=== PATIENT | male | born 1980 | race Caucasian/White ===

== ENCOUNTER 2022-05-28 08:26 | Outpatient (REF) | payer OTHER, SELFPAY ==
[2022-05-28 11:37] LABS: Appearance Urine Clear; Color Urine Yellow; Glucose Urine UA Negative (Negative); Leukocyte Esterase Urine Negative (Negative); Nitrite Urine Negative (Negative); PH 7.5 (5.0-9.0); Urine Blood Negative (Negative); Urine Ketones Negative (Negative); Urine Protein Negative (Neg-Trace)
[2022-05-28 11:38] LABS: MANUAL DIFF FLAG NO
[2022-05-28 11:52] LABS: Basophils Percent Auto 0.4 % (0-2); Eosinophils Absolute Auto 0.1 X10*3/uL (0.0-0.4); Eosinophils Percent Auto 1.5 % (0-4); Hematocrit 48.2 % (42.0-52.0); Imm Gran Abs Auto 0.04 X10*3/uL (0.00-0.03); Imm Gran Pct Auto 0.6 % (0.0-0.4); Lymphocytes Absolute Auto 1.7 X10*3/uL (1.2-4.9); Lymphocytes Percent Auto 24.7 % (20-40); Mean Corpuscular HGB Conc 33.2 g/dl (31.0-36.0); Mean Corpuscular Hemoglobin 29.6 pg (27.0-33.0); Mean Corpuscular Volume 89.3 fL (80.0-98.0); Mean Platelet Volume 10.5 fL (9.4-12.4); Monocytes Absolute Auto 0.3 X10*3/uL (0.1-1.2); Monocytes Percent Auto 5.1 % (2-11); Neutrophils Absolute Auto 4.5 x10*3/uL (2.0-8.3); Neutrophils Percent Auto 67.7 % (45-73); Platelet Count 196 X10*3/uL (160-400); Red Cell Distribution Width 13.8 % (11.0-16.0); White Blood Count 6.7 X10*3/uL (4.8-10.8)
[2022-05-28 12:22] LABS: Alanine Aminotransferase 43 U/L (0-40); Albumin Level 4.6 g/dL (3.5-5.0); Alkaline Phosphatase 93 U/L (39-117); Anion Gap 14 (12-20); Aspartate Amino Transferase 24 U/L (5-37); Bilirubin Total 0.6 mg/dL (0.0-1.0); Blood Urea Nitrogen 10 mg/dL (9-16); Calcium 8.7 mg/dL (8.4-10.2); Carbon Dioxide 27 mmol/L (22-29); Chloride 105 mmol/L (96-108); Cholesterol 165 mg/dL; Estimated Glomerular Filt Rate > 60; Glucose Fasting 92 mg/dL (60-99); HDL Cholesterol 33 mg/dL; LDL Cholesterol Calculated 111 mg/dl; Potassium 4.8 mmol/L (3.3-5.1); Sodium 141 mmol/L (135-145); Triglycerides 109 mg/dL
[2022-05-28 12:24] LABS: TSH reflex Free T4 1.71 uIU/mL (0.32-4.0)
== END 2022-05-28 08:27 | disposition home or self-care (01) ==
LOC: HO.HMGCLDS 08:26
PROVIDERS: PCP Nurse Practitioner Family; Visit Provider Nurse Practitioner Family
DX: Z00.00 Encounter for general adult medical examination without abnormal findings (principal)
CPT/HCPCS: 36415; 80053; 80061; 81003; 84443; 85025

== ENCOUNTER → 2022-06-04 13:32 | Outpatient (REF) | payer OTHER, SELFPAY ==
--- NOTE | 2022-06-04 13:35 | CA_ITS ---
Transthoracic Echocardiogram Patient (Last, First, Middle): Douglas Koroma B Gender: Male Date of : 1980 Age: 41 Procedure Date: 06/04/2022 Procedure Type: Transthoracic Echocardiogram Location: OP Height: 180.34 cm Weight: 107.05 kg BSA: 2.26 m2 Heart Rate: 82 bpm BP: 178 / 82 mmHg Workers Compensation Analyst: SRINIVASA Referring MD: Jim Allen [facility] Symptoms: R01.1 - Cardiac murmur, unspecified Study Quality: Adequate ECG Rhythm: Sinus Conclusions: - The left ventricular systolic function is normal. The visually estimated ejection fraction is between 55-60%. - Mild Concentric left ventricular hypertrophy; moderate at the septum. - Suspect bicuspid aortic valve with mild stenosis. - There is mild dilatation of the ascending aorta measuring 4.10 cm. Findings Left Ventricle Normal left ventricular cavity size. There is mildly increased left ventricular wall thickness. The left ventricular systolic function is normal. The visually estimated ejection fraction is between 55-60%. Diastolic function is normal for age. There is moderate septal asymmetric hypertrophy. Right Ventricle Normal right ventricular cavity size and systolic function. Atria Both atria are normal in size. Aortic Valve There is mild calcification of the aortic valve. There is mild aortic valve stenosis. The mean gradient is 20 mmHg. The aortic valve area is 1.57 cm2. There is no aortic valve regurgitation. Possibly bicuspid with fusion of left and right cusps. Mitral Valve The mitral valve appears normal. There is no mitral valve regurgitation. There is no mitral valve stenosis. Pulmonic Valve The pulmonic valve is likely normal. Tricuspid Valve Normal tricuspid valve structure. There is no tricuspid valve regurgitation. Tricuspid regurgitation envelope is inadequate for calculation of right ventricular systolic pressure. Great Vessels There is mild dilatation of the ascending aorta measuring 4.10 cm. Venous The inferior vena cava is normal in size and collapses greater than 50% with inspiration. Pericardium/Pleural There is no evidence of pericardial effusion. Prior Study Comparison No prior study available for comparison. Measurements 2D Linear Measurements IVSd: 1.43 0.6-0.9/0.6-1.0 cm LVIDd: 5.22 3.9-5.3/4.2-5.9 cm LVIDd Index: 2.31 2.4-3.2/2.2-3.1 cm/m2 LVIDs: 3.35 2.0-3.6 cm LVPWd: 1.23 0.7-1.1 cm LA Diam: 4.10 2.7-3.8/3.0-4.0 cm LAIDs Index: 1.81 1.5-2.3 cm/m2 LV Mass: 360.95 67-162/88-224 g LV Mass Index: 159.71 43-95/49-115 g/m2 LVOT Diam: 2.50 3.0+(-)1.3 cm 2D Systolic Function EF 4C: 53.50 >55% EF 2C: 37.20 >55% Mitral Valve MV Pk E: 1.03 MV PK A: 1.22 MV Decel Time: 169.00 E/A: 0.80 E'Lateral: 8.49 E'Medial: 7.62 E/E' Med: 13.50 E/E' Lat: 12.10 PHT: 50.00 MVA PHT: 4.40 Decel Barnes: 6.08 Aortic Valve AoV Pk Dk: 3.16 AoV Mn Dk: 2.01 AoV VTI: 0.61 AoV Pk Grad: 40.00 Aov Mn Grad: 20.00 ALISTAIR Cont.VTI: 1.57 LVOT LVOT Pk Dk: 0.99 LVOT Mn Dk: 0.75 LVOT VTI: 0.20 LVOT Pk Grad: 4.00 LVOT Mn Grad: 2.00 LVOT Diam: 2.50 LVOT Area: 4.91 Diastolic Function MV Pk E: 1.03 MV Pk A: 1.22 E/A: 0.80 E'Medial: 7.62 E/E' Med: 13.50 E' Laterial: 8.49 E/E' Lat: 12.10 Right Ventricle TAPSE (mm): 25.30 TVS' Dk: 16.50 Tricuspid Valve RA Press: 3.00 Great Vessels Aorta Sinus of Valsalva: 3.60 2.0-3.5 cm Ao Asc: 4.10 2.1-3.4 cm Pulmonary Valve PV Pk Dk: 1.16 Peak PV Grad: 5.00 Updated in Other Vendor System with Status of Final Miguel Bill MD electronically signed on 06/04/2022 4:49:07 PM with status of Final
== END ==
LOC: HO.CARD 13:32
PROVIDERS: Visit Provider Nurse Practitioner Family
DX: R01.1 Cardiac murmur, unspecified (principal)
CPT/HCPCS: 93306

== ENCOUNTER 2023-08-09 08:49 | Outpatient (REF) | payer OTHER, SELFPAY ==
[2023-08-09 11:52] LABS: Appearance Urine Clear; Color Urine Yellow; Glucose Urine UA Negative (Negative); Leukocyte Esterase Urine Negative (Negative); Nitrite Urine Negative (Negative); PH 6.5 (5.0-9.0); Specific Gravity - Urine 1.015 (1.005-1.025); Urine Blood Negative (Negative); Urine Ketones Negative (Negative); Urine Protein Negative (Neg-Trace)
[2023-08-09 11:52] LABS: MANUAL DIFF FLAG NO
[2023-08-09 11:54] LABS: Basophils Percent Auto 0.5 % (0-2); Eosinophils Absolute Auto 0.1 X10*3/uL (0.0-0.4); Eosinophils Percent Auto 1.6 % (0-4); Hematocrit 45.6 % (42.0-52.0); Hemoglobin 15.7 g/dl (14.0-18.0); Imm Gran Abs Auto 0.03 X10*3/uL (0.00-0.03); Imm Gran Pct Auto 0.5 % (0.0-0.4); Lymphocytes Absolute Auto 1.8 X10*3/uL (1.2-4.9); Lymphocytes Percent Auto 28.1 % (20-40); Mean Corpuscular HGB Conc 34.4 g/dl (31.0-36.0); Mean Corpuscular Hemoglobin 29.7 pg (27.0-33.0); Mean Corpuscular Volume 86.2 fL (80.0-98.0); Mean Platelet Volume 10.4 fL (9.4-12.4); Monocytes Absolute Auto 0.4 X10*3/uL (0.1-1.2); Monocytes Percent Auto 6.3 % (2-11); Platelet Count 184 X10*3/uL (160-400); Red Blood Count 5.29 X10*6/uL (4.60-5.80); Red Cell Distribution Width 13.6 % (11.0-16.0); White Blood Count 6.4 X10*3/uL (4.8-10.8)
[2023-08-09 12:16] LABS: Alanine Aminotransferase 47 U/L (0-40); Albumin Level 4.2 g/dL (3.5-5.0); Alkaline Phosphatase 85 U/L (39-117); Anion Gap 10 (12-20); Aspartate Amino Transferase 26 U/L (5-37); Bilirubin Total 0.8 mg/dL (0.0-1.0); Blood Urea Nitrogen 11 mg/dL (9-16); Calcium 8.8 mg/dL (8.4-10.2); Carbon Dioxide 28 mmol/L (22-29); Chloride 104 mmol/L (96-108); Cholesterol 154 mg/dL (<200); Estimated Glomerular Filt Rate > 60; Glucose Fasting 97 mg/dL (60-99); HDL Cholesterol 31 mg/dL (>40); LDL Cholesterol Calculated 96 mg/dL (<100); Potassium 4.3 mmol/L (3.3-5.1); Sodium 138 mmol/L (135-145); Total Protein 6.9 g/dL (6.5-8.0); Triglycerides 136 mg/dL (<150)
[2023-08-09 12:35] LABS: TSH reflex Free T4 1.55 uIU/mL (0.32-4.0)
== END 2023-08-09 08:50 | disposition home or self-care (01) ==
LOC: HO.HMGCLDS 08:49
PROVIDERS: PCP Nurse Practitioner Family; Visit Provider Nurse Practitioner Family
DX: I10 Essential (primary) hypertension (principal)
CPT/HCPCS: 36415; 80053; 80061; 81003; 84443; 85025

== ENCOUNTER 2023-10-02 15:23 | Outpatient (AMB) | payer OTHER, SELFPAY ==
[2023-10-02 15:26] VITALS: BP 140/86; PULSE 76; O2SAT 97; BMI 34.2
--- NOTE | 2023-10-02 15:26 | MHC.PC.OV ---
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 Accompanied by: Self / Same As Patient Allergies No Known Allergies Allergy (Verified 10/02/23 15:26) Medication List - Last Reconciled 10/02/23 by NICOLAS Clayton amlodipine 5 mg PO DAILY cetirizine (Zyrtec) 10 mg PO DAILY PRN hydrochlorothiazide 12.5 mg PO DAILY 90 days irbesartan 150 mg PO DAILY Tobacco use date assessed: 10/02/23 Dental Screening Dental Screen Date: 10/02/23 Did you have a dental visit in the last 12 months?: Yes Did you have a dental problem in the last 6 months where you did not have access to dental care?: No Was dental information given to patient?: Patient has dentist HPI annual exam/BP HPI Details Pt is here for a PE. Will order labs. Pt had a previous echo in May of 2022 which showed: The left ventricular systolic function is normal. The visually estimated ejection fraction is between 55-60%. Mild Concentric left ventricular hypertrophy; moderate at the septum. Suspect bicuspid aortic valve with mild stenosis. There is mild dilatation of the ascending aorta measuring 4.10 cm. I wanted to repeat an echo but pt refused due to cost. Pt's murmur is not changing in intensity. HTN: Blood pressure is managed with amlodipine 2.5mg, hydrochlorothiazide 12.5mg, and irbesartan 75mg. Will increase amlodipine to 5mg and irbesartan to 150mg after one week. Pt will monitor his blood pressure at home. Denies chest pain, shortness of breath, headache, dizziness, and blurred vision. [facility] Medical History Ascending aorta dilatation Surgical History No pertinent past surgical history Social History Housing: Apartment Patient Tobacco Use Status: Never used Tobacco e-Cigarette/Vaping Use: Never Used Second Hand Smoke Exposure: No service: No Current occupational status: employed Current occupation: [employer] Current occupational exposures/hazards: No Cognitive needs: No Hearing needs: No Vision needs: No Questionnaire PHQ-9 Over the last 2 weeks, how often have you been bothered by any of the following problems? 1. Little interest or pleasure in doing things: not at all 2. Feeling down, depressed, or hopeless: several days 3. Trouble falling or staying asleep, or sleeping too much: several days 4. Feeling tired or having little energy: not at all 5. Poor appetite or overeating: not at all 6. Feeling bad about yourself - or that you are a failure or have let yourself or your family down: not at all 7. Trouble concentrating on things, such as reading the newspaper or watching television: not at all 8. Moving or speaking so slowly that other people could have noticed. Or the opposite - being so fidgety or restless that you have been moving around a lot more than usual: not at all 9. Thoughts that you would be better off or of hurting yourself in some way: not at all Total score: 2 Depression Screening Interpretation: Negative Depression Screening Done: Yes 70152 - PHQ-9 Billing: Yes Source: Developed by Drs. Ez Gutierrez, Cheryl العراقي, Jak Allen and colleagues, with an educational marcela from [employer]. Thrive Questionnaire Date Thrive assessed: 10/02/23 AUDIT C Alcohol Use Questionnaire (AUDIT-C) 1. How often do you have a drink containing alcohol?: 4 or more times a week 2. How many drinks containing alcohol do you have on a typical day when you are drinking?: 1 or 2 3. How often do you have six or more drinks on one occasion?: Never Total Score: 4 Score Reviewed/Action Taken: Yes JUSTYN-7 AMB Questionnaire JUSTYN-7 Date JUSTYN - 7 assessed: 10/02/23 Feeling nervous, anxious, or on edge: 1 = Several days Not being able to stop or control worryin = Not at all Worrying too much about different things: 1 = Several days Trouble relaxin = Not at all Being so restless that it is hard to sit still: 1 = Several days Becoming easily annoyed or irritable: 0 = Not at all Feeling afraid as if something awful might happen: 0 = Not at all Total JUSTYN-7 score (0-4 normal; 5-9 mild; 10-14 moderate; 15-21 severe): 3 Source: Developed by Drs. Ez Gutierrez, Cheryl العراقي, Jak Allen and colleagues, with an educational marcela from [employer]. JUSTYN-7 Assessment Billing JUSTYN-7 Assessment Tool: JUSTYN-7 Assessment 83980 Review of Systems Const Denies chills and Denies fever(s) Eyes Denies blurry vision ENT Denies vertigo, Denies dizziness and Denies sore throat Card Denies chest pain at rest, Denies chest pain with activity, Denies diaphoresis, Denies dyspnea and Denies dyspnea on exertion Resp Denies cough, Denies dyspnea, Denies dyspnea on exertion and Denies wheezing GI Denies abdominal pain, Denies melena, Denies hematochezia, Denies constipation, Denies diarrhea and Denies loose stools Denies hematuria Musc Denies numbness and Denies tingling Skin/Breast Denies lesions Neuro Denies vertigo, Denies dizziness, Denies numbness and Denies tingling Psych Denies anxiety, Denies depression, Denies homicidal ideation, Denies suicidal ideation and Denies other (substance abuse) Aller/Immun Denies wheezing Physical exam (Primary Care) Vital Signs: Last Vital Signs Pulse 76 10/02/23 15:26 BP 140/86 H 10/02/23 15:26 Pulse Ox 97 10/02/23 15:26 Oxygen Delivery Method Room Air 10/02/23 15:26 BMI result Body Mass Index 34.2 Tobacco/Smoking Status: Tobacco use Status Tobacco use date assessed 10/02/23 10/02/23 15:27 Patient Tobacco Use Status Never used Tobacco 10/02/23 15:27 e-Cigarette/Vaping Use Never Used 10/02/23 15:27 PHQ-9: PHQ-9 Score PHQ-9: Total score 2 10/02/23 15:46 Depression Screening Interpretation: Negative Thrive Assessment: Date of Thrive Assessment Date Thrive assessed 10/02/23 10/02/23 15:27 Const General: cooperative Nutritional Appearance: obese Orientation/consciousness: patient oriented x3 HENMT Head: Yes normal to inspection, Yes normocephalic and Yes atraumatic Ears: TM's normal bilaterally Eyes General: appearance normal, both eyes and all related structures Alignment and Position: alignment normal and position normal Neck Neck: Yes normal visual inspection and Yes no lymphadenopathy Thyroid: Thyroid normal Resp Effort & Inspection: normal respiratory effort Auscultation: clear to auscultation bilaterally Cardio Rate: regular rate Rhythm: regular rhythm Heart sounds: S1 normal heart sound present, S2 normal heart sound present and Murmur heart sound present systolic GI Palpation (GI): Soft to palpation and nontender Auscultation: normal bowel sounds Skin Rashes: no rashes Neuro General: patient oriented x3, moves all extremities, no focal motor deficits and deep tendon reflexes 2+ bilaterally Romberg Test: Negative Extrem Right lower extremity: no edema Left lower extremity: no edema Psych Appearance: grossly normal Mental Status: mental status grossly normal Speech and movement: Normal speech and movement present Affect: normal affect Attitude: cooperative Thought process: Normal thought process present Thought content: Normal thought content present Insight: Good insight present (Psych) Judgement: Good judgement present (Psych) Assessment and Plan Assessment & Plan (1) Aortic stenosis: Code(s): I35.0 - Nonrheumatic aortic (valve) stenosis (2) Ascending aorta dilatation: Code(s): I77.810 - Thoracic aortic ectasia (3) Bicuspid aortic valve: Code(s): Q23.1 - Congenital insufficiency of aortic valve (4) HTN (hypertension): Code(s): I10 - Essential (primary) hypertension Plan: monitoring, irbesartan increased, amlodipine increased, pt will drop off BP values in the near future (5) Physical exam: Code(s): Z00.00 - Encounter for general adult medical examination without abnormal findings (6) Systolic murmur: Code(s): R01.1 - Cardiac murmur, unspecified Plan: will cont to monitor Plan The patient agreed to the use of a medical interpreter for this encounter. Scribed for NICOLAS Dumont by Mattie Hunt medical interpreter, on 10/02/2023 at 15:45 EST. Medications: Changed From amlodipine 2.5 mg PO DAILY 90 tabs 1RF To amlodipine 5 mg PO DAILY 90 tabs 1RF From irbesartan 75 mg PO DAILY 90 tabs 1RF To irbesartan 150 mg PO DAILY 90 tabs 1RF Coding Level of Care Code Est Pt Prev Care 40-64y(29788) Diagnoses Aortic stenosis I35.0 Ascending aorta dilatation I77.810 Bicuspid aortic valve Q23.1 HTN (hypertension) I10 Physical exam Z00.00 Systolic murmur R01.1 Additional Codes JUSTYN-7 Assessment Billing - JUSTYN-7 Assessment Tool: JUSTYN-7 Assessment 71040 ([id number])
== END 2023-10-02 16:14 | disposition home or self-care (01) ==
PROVIDERS: PCP Nurse Practitioner Family; Visit Provider Nurse Practitioner Family
DX: Z00.00 Encounter for general adult medical examination without abnormal findings (principal); I77.810 Thoracic aortic ectasia; I35.0 Nonrheumatic aortic (valve) stenosis; I10 Essential (primary) hypertension; R01.1 Cardiac murmur, unspecified
CPT/HCPCS: 99396

== ENCOUNTER 2023-11-07 10:34 | Outpatient (REF) | payer OTHER, SELFPAY ==
[2023-11-07 13:05] LABS: MANUAL DIFF FLAG NO
[2023-11-07 13:13] LABS: Appearance Urine Clear; Color Urine Yellow; Glucose Urine UA Negative (Negative); Leukocyte Esterase Urine Negative (Negative); Nitrite Urine Negative (Negative); PH 6.5 (5.0-9.0); Specific Gravity - Urine 1.015 (1.005-1.025); Urine Blood Negative (Negative); Urine Ketones Negative (Negative); Urine Protein Negative (Neg-Trace)
[2023-11-07 13:19] LABS: Basophils Percent Auto 0.6 % (0-2); Eosinophils Absolute Auto 0.2 X10*3/uL (0.0-0.4); Eosinophils Percent Auto 2.3 % (0-4); Hematocrit 43.5 % (42.0-52.0); Hemoglobin 14.8 g/dl (14.0-18.0); Imm Gran Abs Auto 0.03 X10*3/uL (0.00-0.03); Imm Gran Pct Auto 0.5 % (0.0-0.4); Lymphocytes Absolute Auto 1.8 X10*3/uL (1.2-4.9); Mean Corpuscular Hemoglobin 29.6 pg (27.0-33.0); Mean Platelet Volume 10.1 fL (9.4-12.4); Monocytes Absolute Auto 0.4 X10*3/uL (0.1-1.2); Monocytes Percent Auto 5.9 % (2-11); Neutrophils Absolute Auto 4.1 x10*3/uL (2.0-8.3); Neutrophils Percent Auto 63.7 % (45-73); Platelet Count 191 X10*3/uL (160-400); Red Cell Distribution Width 13.9 % (11.0-16.0); White Blood Count 6.5 X10*3/uL (4.8-10.8)
[2023-11-07 14:04] LABS: Alanine Aminotransferase 62 U/L (0-40); Albumin Level 4.6 g/dL (3.5-5.0); Alkaline Phosphatase 79 U/L (39-117); Anion Gap 16 (12-20); Aspartate Amino Transferase 31 U/L (5-37); Bilirubin Total 0.9 mg/dL (0.0-1.0); Blood Urea Nitrogen 14 mg/dL (9-16); Calcium 9.5 mg/dL (8.4-10.2); Carbon Dioxide 26 mmol/L (22-29); Chloride 102 mmol/L (96-108); Cholesterol 152 mg/dL (<200); Estimated Glomerular Filt Rate > 60; Glucose Fasting 99 mg/dL (60-99); HDL Cholesterol 32 mg/dL (>40); LDL Cholesterol Calculated 85 mg/dL (<100); Potassium 3.7 mmol/L (3.3-5.1); Sodium 140 mmol/L (135-145); Total Protein 7.2 g/dL (6.5-8.0); Triglycerides 178 mg/dL (<150)
[2023-11-07 14:09] LABS: TSH reflex Free T4 1.41 uIU/mL (0.32-4.0)
== END 2023-11-07 10:35 | disposition home or self-care (01) ==
LOC: HO.HMGCLDS 10:34
PROVIDERS: PCP Nurse Practitioner Family; Visit Provider Nurse Practitioner Family
DX: Z13.89 Encounter for screening for other disorder (principal)
CPT/HCPCS: 36415; 80053; 80061; 81003; 84443; 85025

== ENCOUNTER 2024-04-08 14:48 | Outpatient (AMB) | payer OTHER, SELFPAY ==
[2024-04-08 14:51] VITALS: BP 140/84; PULSE 87; O2SAT 97; BMI 35.0
--- NOTE | 2024-04-08 14:51 | A.OFFPC_ITS ---
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 Pt reports that his blood pressure has been averaging around 138/high 80s. Will add metoprolol 12.5mg. Pt has a hx of aortic stenosis, bicuspid aortic valve, and ascending aorta dilatation. Pt has refused repeat echo in the past due to cost. Informed pt of the importance and relevance of a repeat echo, will order. Denies chest pain, shortness of breath, headache, dizziness,increased fatigue, and blurred vision. Encouraged pt to have labs drawn. [facility] Medical History Ascending aorta dilatation Surgical History No pertinent past surgical history Social History Housing: Apartment Patient Tobacco Use Status: Never used Tobacco e-Cigarette/Vaping Use: Never Used Second Hand Smoke Exposure: No service: No Current occupational status: employed Current occupation: [employer] Current occupational exposures/hazards: No Cognitive needs: No Hearing needs: No Vision needs: No Questionnaire Thrive Questionnaire Date Thrive assessed: 04/08/24 I am a: Patient What is your living situation today?: I choose not to answer this question Within the past 12 months, did the food you bought not last and you didn't have the money to get more?: I choose not to answer this question Within the past 12 months, did you worry whether your food would run out before you got money to buy more?: I choose not to answer this question Do you have trouble paying for medicines?: I choose not to answer this question Do you have trouble getting transportation to medical appointments?: I choose not to answer this question Do you have trouble paying your heating and electricity bill?: I choose not to answer this question Do you have trouble taking care of your child, family member or friend?: I choose not to answer this question Do you have trouble with day-to-day activities such as bathing, preparing meals, shopping, managing finances, etc.?: I choose not to answer this question Are you interested in more education?: I choose not to answer this question Please select the resources that you would like help with: None Currently or been in a relationship where the following occur: I choose not to answer THRIVE Score: 0 AUDIT C Alcohol Use Questionnaire (AUDIT-C) 1. How often do you have a drink containing alcohol?: 2-4 times a month 2. How many drinks containing alcohol do you have on a typical day when you are drinking?: 1 or 2 3. How often do you have six or more drinks on one occasion?: Never Total Score: 2 Score Reviewed/Action Taken: Yes JUSTYN-7 AMB Questionnaire JUSTYN-7 Date JUSTYN - 7 assessed: 04/08/24 Feeling nervous, anxious, or on edge: 0 = Not at all Not being able to stop or control worryin = Not at all Worrying too much about different things: 0 = Not at all Trouble relaxin = Not at all Being so restless that it is hard to sit still: 0 = Not at all Becoming easily annoyed or irritable: 0 = Not at all Feeling afraid as if something awful might happen: 0 = Not at all Total JUSTYN-7 score (0-4 normal; 5-9 mild; 10-14 moderate; 15-21 severe): 0 Source: Developed by Drs. Ez Gutierrez, Cheryl العراقي, Jak Allen and colleagues, with an educational marcela from [employer]. JUSTYN-7 Assessment Billing JUSTYN-7 Assessment Tool: JUSTYN-7 Assessment 76528 Review of Systems Const Reports as per HPI Physical exam (Primary Care) Vital Signs: Last Vital Signs Pulse 87 04/08/24 14:51 BP 138/84 04/08/24 15:01 Pulse Ox 97 04/08/24 14:51 Oxygen Delivery Method Room Air 04/08/24 14:51 BMI result Body Mass Index 35.0 Tobacco/Smoking Status: Tobacco use Status Tobacco use date assessed 10/02/23 04/08/24 14:52 Patient Tobacco Use Status Never used Tobacco 04/08/24 14:52 e-Cigarette/Vaping Use Never Used 04/08/24 14:52 Thrive Assessment: Date of Thrive Assessment Date Thrive assessed 04/08/24 04/08/24 14:52 Currently or been in a relationship where the following occur: I choose not to answer Const General: cooperative Nutritional Appearance: obese Orientation/consciousness: patient oriented x3 Resp Effort & Inspection: normal respiratory effort Auscultation: clear to auscultation bilaterally Cardio Rate: regular rate Rhythm: regular rhythm Heart sounds: S1 normal heart sound present, S2 normal heart sound present and Murmur heart sound present systolic Neuro General: patient oriented x3 Extrem Right lower extremity: no edema Left lower extremity: no edema Psych Appearance: grossly normal Mental Status: mental status grossly normal Speech and movement: Normal speech and movement present Affect: normal affect Attitude: cooperative Thought process: Normal thought process present Thought content: Normal thought content present Insight: Good insight present (Psych) Judgement: Good judgement present (Psych) Coding Level of Care Code Est Pt Level 3 (13686) Diagnoses Bicuspid aortic valve Q23.1 Aortic stenosis I35.0 Ascending aorta dilatation I77.810 HTN (hypertension) I10 Additional Codes JUSTYN-7 Assessment Billing - JUSTYN-7 Assessment Tool: JUSTYN-7 Assessment 16556 ([id number]) Assessment & Plan Assessment & Plan (1) Bicuspid aortic valve: Code(s): Q23.1 - Congenital insufficiency of aortic valve Category: Medical Plan: Informed pt of the importance and relevance of repeat echo, will order (2) Aortic stenosis: Code(s): I35.0 - Nonrheumatic aortic (valve) stenosis Category: Medical Plan: Informed pt of the importance and relevance of repeat echo, will order (3) Ascending aorta dilatation: Code(s): I77.810 - Thoracic aortic ectasia Category: Medical Plan: Informed pt of the importance and relevance of repeat echo, will order (4) HTN (hypertension): Code(s): I10 - Essential (primary) hypertension Category: Medical Plan: Starting metoprolol 12.5mg, encouraged pt to have labs drawn Plan The patient agreed to the use of a medical or surgical instrument maker for this encounter. Scribed for NICOLAS Dumont by bharat Bass scribe, on 04/08/2024 at 15:05 EST. Orders: Orders CA echo transthoracic complete Today I10 - Essential (primary) hypertension, I35.0 - Nonrheumatic aortic (valve) stenosis, I77.810 - Thoracic aortic ectasia, Q23.1 - Congenital insufficiency of aortic valve, R01.1 - Cardiac murmur, unspecified Medications: New metoprolol succinate ER 12.5 mg (1/2 x 25 mg) PO DAILY 30 days 15 tabs 1RF
[2024-04-08 15:01] VITALS: BP 138/84
== END 2024-04-08 16:40 | disposition home or self-care (01) ==
PROVIDERS: PCP Nurse Practitioner Family; Visit Provider Nurse Practitioner Family
DX: Q23.1 Congenital insufficiency of aortic valve (principal); I35.0 Nonrheumatic aortic (valve) stenosis; I77.810 Thoracic aortic ectasia; I10 Essential (primary) hypertension

== ENCOUNTER → 2024-04-08 14:48 | Outpatient (BNVA) | payer OTHER, SELFPAY | PROVIDERS: PCP Nurse Practitioner Family; Visit Provider Nurse Practitioner Family | DX: I10 Essential (primary) hypertension (principal); I35.0 Nonrheumatic aortic (valve) stenosis; I77.810 Thoracic aortic ectasia; Q23.1 Congenital insufficiency of aortic valve | CPT/HCPCS: 96127 ==

== ENCOUNTER → 2024-05-04 14:42 | Outpatient (REF) | payer OTHER, SELFPAY ==
--- NOTE | 2024-05-04 14:46 | CA_ITS ---
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 The calculated ejection fraction is 57% by biplane method. - There is a bicuspid aortic valve. There is mild aortic valve stenosis. - There is moderate dilatation of the ascending aorta measuring 4.40 cm. Findings Procedure Information Contrast agent, definity, is being given per protocol without apparent complications. Left Ventricle Normal left ventricular cavity size. There is mildly increased left ventricular wall thickness. The left ventricular systolic function is normal. The calculated ejection fraction is 57% by biplane method. There is no evidence of regional wall motion abnormalities. Diastolic function is normal for age. Right Ventricle Normal right ventricular cavity size and systolic function. Atria Both atria are normal in size. Aortic Valve There is a bicuspid aortic valve. There is mild calcification of the aortic valve. There is mild aortic valve stenosis. The peak aortic velocity is 2.63 m/s with a calculated peak gradient of 28 mmHg. The mean gradient is 17 mmHg. The aortic valve area is 1.37 cm2. There is no aortic valve regurgitation. (fusion of left and right cusps). Mitral Valve The mitral valve appears normal. There is no mitral valve regurgitation. There is no mitral valve stenosis. Pulmonic Valve The pulmonic valve is likely normal. There is trace pulmonic valve regurgitation. Tricuspid Valve There is trace tricuspid valve regurgitation. Tricuspid regurgitation envelope is inadequate for calculation of right ventricular systolic pressure. Great Vessels There is moderate dilatation of the ascending aorta measuring 4.40 cm. Venous The inferior vena cava is normal in size and collapses greater than 50% with inspiration. Pericardium/Pleural There is no evidence of pericardial effusion. Prior Study Comparison Changes noted compared to prior study dated: 06/04/2022. Increase in ascending aortic size. Measurements 2D Linear Measurements IVSd: 1.15 0.6-0.9/0.6-1.0 cm LVIDd: 4.95 3.9-5.3/4.2-5.9 cm LVIDd Index: 2.13 2.4-3.2/2.2-3.1 cm/m2 LVIDs: 3.54 2.0-3.6 cm LVPWd: 1.03 0.7-1.1 cm LA Diam: 3.90 2.7-3.8/3.0-4.0 cm LAIDs Index: 1.68 1.5-2.3 cm/m2 LV Mass: 250.83 67-162/88-224 g LV Mass Index: 108.12 43-95/49-115 g/m2 LVOT Diam: 2.40 3.0+(-)1.3 cm 2D Systolic Function EF 4C: 54.30 >55% EF 2C: 59.80 >55% EF BiP: 57.10 >55% Mitral Valve MV Pk E: 0.74 MV PK A: 0.66 MV Decel Time: 160.00 E/A: 1.10 E'Lateral: 5.77 E'Medial: 4.90 E/E' Med: 15.00 E/E' Lat: 12.80 PHT: 47.00 MVA PHT: 4.68 Decel Duchesne: 4.60 Aortic Valve AoV Pk Dk: 2.63 AoV Mn Dk: 1.94 AoV VTI: 0.50 AoV Pk Grad: 28.00 Aov Mn Grad: 17.00 ALISTAIR Cont.VTI: 1.37 LVOT LVOT Pk Dk: 0.83 LVOT Mn Dk: 0.64 LVOT VTI: 0.15 LVOT Pk Grad: 3.00 LVOT Mn Grad: 2.00 LVOT Diam: 2.40 LVOT Area: 4.52 Diastolic Function MV Pk E: 0.74 MV Pk A: 0.66 E/A: 1.10 E'Medial: 4.90 E/E' Med: 15.00 E' Laterial: 5.77 E/E' Lat: 12.80 Right Ventricle TAPSE (mm): 23.90 TVS' Dk: 17.20 Tricuspid Valve RA Press: 3.00 Great Vessels Aorta Sinus of Valsalva: 3.76 2.0-3.[address] [place]: 3.15 1.7-3.4 cm Ao Asc: 4.40 2.1-3.4 cm Ao Arch: 3.40 Updated in Other Vendor System with Status of Final Miguel Bill MD electronically signed on 05/05/2024 11:01:51 AM with status of Final
== END ==
LOC: HO.CARD 14:42
PROVIDERS: PCP Nurse Practitioner Family; Visit Provider Nurse Practitioner Family
DX: Q23.1 Congenital insufficiency of aortic valve (principal); I35.0 Nonrheumatic aortic (valve) stenosis; I77.810 Thoracic aortic ectasia
CPT/HCPCS: 93306; Q9957

== ENCOUNTER → 2024-05-04 14:46 | Outpatient (BNV) | payer OTHER, SELFPAY | PROVIDERS: PCP Nurse Practitioner Family; Visit Provider Internal Medicine | DX: Q23.81 Bicuspid aortic valve (principal); Q23.0 Congenital stenosis of aortic valve; I77.810 Thoracic aortic ectasia | CPT/HCPCS: 93303; 93320; 93325 ==

== ENCOUNTER 2024-06-22 09:53 | Outpatient (REF) | payer OTHER, SELFPAY ==
[2024-06-22 13:22] LABS: Appearance Urine Clear; Color Urine Yellow; Glucose Urine UA Negative (Negative); Leukocyte Esterase Urine Negative (Negative); Nitrite Urine Negative (Negative); Urine Blood Negative (Negative); Urine Ketones Negative (Negative); Urine Protein Negative (Neg-Trace)
[2024-06-22 13:28] LABS: Bacteria Urine None Seen (None Seen); Hyaline Casts Urine 0-2 /LPF (0-2); RBC Urine 0-2 /HPF (0-2); Squamous Epithelial Cell Urine 0-2 /HPF (0-2); WBC Urine 0-5 /HPF (0-5)
[2024-06-22 13:34] LABS: MANUAL DIFF FLAG NO
[2024-06-22 13:47] LABS: Basophils Percent Auto 0.6 % (0-2); Eosinophils Absolute Auto 0.2 X10*3/uL (0.0-0.4); Eosinophils Percent Auto 2.2 % (0-4); Hematocrit 46.1 % (42.0-52.0); Hemoglobin 15.6 g/dl (14.0-18.0); Imm Gran Abs Auto 0.04 X10*3/uL (0.00-0.03); Imm Gran Pct Auto 0.6 % (0.0-0.4); Lymphocytes Absolute Auto 1.6 X10*3/uL (1.2-4.9); Lymphocytes Percent Auto 24.4 % (20-40); Mean Corpuscular HGB Conc 33.8 g/dl (31.0-36.0); Mean Corpuscular Hemoglobin 29.3 pg (27.0-33.0); Mean Corpuscular Volume 86.7 fL (80.0-98.0); Mean Platelet Volume 10.3 fL (9.4-12.4); Monocytes Absolute Auto 0.3 X10*3/uL (0.1-1.2); Monocytes Percent Auto 4.8 % (2-11); Neutrophils Absolute Auto 4.5 x10*3/uL (2.0-8.3); Neutrophils Percent Auto 67.4 % (45-73); Platelet Count 199 X10*3/uL (160-400); Red Blood Count 5.32 X10*6/uL (4.60-5.80); Red Cell Distribution Width 13.5 % (11.0-16.0); White Blood Count 6.7 X10*3/uL (4.8-10.8)
[2024-06-22 14:18] LABS: Alanine Aminotransferase 68 U/L (0-40); Albumin Level 4.4 g/dL (3.5-5.0); Alkaline Phosphatase 76 U/L (39-117); Anion Gap 10 (12-20); Aspartate Amino Transferase 36 U/L (5-37); Bilirubin Total 0.7 mg/dL (0.0-1.0); Blood Urea Nitrogen 9 mg/dL (9-16); Calcium 8.6 mg/dL (8.4-10.2); Carbon Dioxide 29 mmol/L (22-29); Chloride 104 mmol/L (96-108); Cholesterol 165 mg/dL (<200); Estimated Glomerular Filt Rate > 60; Glucose Fasting 92 mg/dL (60-99); HDL Cholesterol 31 mg/dL (>40); LDL Cholesterol Calculated 100 mg/dL (<100); Potassium 4.1 mmol/L (3.3-5.1); Sodium 139 mmol/L (135-145); Total Protein 7.1 g/dL (6.5-8.0); Triglycerides 172 mg/dL (<150)
[2024-06-22 14:38] LABS: TSH reflex Free T4 2.03 uIU/mL (0.32-4.0)
== END 2024-06-22 09:54 | disposition home or self-care (01) ==
LOC: HO.HMGCLDS 09:53
PROVIDERS: PCP Nurse Practitioner Family; Visit Provider Nurse Practitioner Family
DX: Z13.89 Encounter for screening for other disorder (principal)
CPT/HCPCS: 36415; 80053; 80061; 81001; 84443; 85025

== ENCOUNTER 2024-07-11 08:58 | Outpatient (REF) | payer OTHER, SELFPAY ==
--- OUTSIDE RECORDS SUMMARY | 2024-07-11 09:01 | XMS_ITS | Data Portability ---
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 Plan of Treatment Reminders Order Date Submit Date Provider Last Modified By Organization Details Last Modified Time Details Appointments None recorded. Lab None recorded. Referral None recorded. Procedures None recorded. Surgeries None recorded. Imaging XR, knee, 3 view 2022 023 [facility], [address] [place] [address], [address], 3 17:24:41 Medication Orders diclofenac sodium 75 mg tablet,kandace yed release [address] [facility] #[id number], [address] [place], [address], 3 14:27:29 diclofenac 1 % topical gel [address] [facility]/Pharm[facility] #[id number], [address] [place], [address], 3 15:16:23 Patient TargetsNo targets recorded. Patient Instructions Encounter Date Encounter Id Patient Instructions Last Modified By Organization Details Last Modified Time 07/18/2022 [id number] knee sprain: car e instructions [email or web address] Not available 07/18/2022 15:04:03 learning about rice (rest, ice, compression, and elevation) [email or web address] Not available 07/18/2022 15:04:02 Reason for Referral None Reported. Results Created Date Observation Date Name Description Value Unit Range Abnormal Flag Note LastModifiedBy Organization Detail LastModifiedTime 07/11/19 23 07/11/2022 XR, knee, 3 view No observ ation record ed. [email or web address] [facility] [address] [place], [address], 07/12/2022 12:13:03 Result Notes None recorded. Problems Name Problem SNOMED Code Status Onset Date Resolution Date Notes Provider Name and Address Organization Details Recorded Time Hypertensive disorder 32580264 Active JAIMEE PRIETO RA null, PA - [facility] 3 15:09:48 Obese 256459176 Active 2022 ARACELIS JOHNS null, PA - [facility] 3 08:20:43 Notes:heart valve problem Problem Notes None recorded. Procedures Surgical History None recorded. Imaging Results Imaging Date Name Status LastModified by Organiz ation Details LastModified Time 07/11/2022 XR, knee, 3 view completed [email or web address] [facility] [address] [place], [address], 07/12/2022 12:13:03 Procedure Notes None recorded. Medical Equipment None Reported. Allergies No known drug allergies Medications Name Sig Start Date Stop Date Status Note LastModified by Organization Details LastModified Time diclofenac sodium 75 mg tablet,del ayed release Take 1 tablet twice a day by oral route for 7 days. 07/17 completed nausea Not Available Not Available Not Available irbesartan active Not Available Not Av ailable Not Available ibuprofen active Not Available Not Kimberley ilable Not Available diclofenac 1 % topical gel APPLY 2 GRAMS TO THE AFFECTED AREA(S) BY TOPICAL ROUTE 4 TIMES PER DAY NEEDED FOR PAIN 2022 active Not Available Not Available Not Avai lable Vitals Date Recorded Body height Body mass index (BMI) Body weight Respiratory rate Oxygen saturation Oxygen saturation in Arterial blood by Pulse oximetry Heart rate Body temperature Systolic blood pressure Diastolic blood pressure Provider Name and Address Organization Details Last Updated DateTime 3 180.34 cm 32.9 kg/m2 070426. 8 g 18 /min 99 % 99 % 62 /min 97.4 [degF] 124 mm[Hg] 88 mm[Hg] JAIMEE PRIETO RA PA - [facility] 3 15:12:58 Date Recorded Body height Body mass index (BMI) Body weight Oxygen saturation Oxygen saturation in Arterial blood by Pulse oximetry Heart rate Respiratory rate Body temperature Systolic blood pressure Diastolic blood pressure Provider Name and Address Organization Details Last Updated DateTime 3 180.34 cm 32.9 kg/m2 465567. 8 g 100 % 100 % 85 /min 18 /min 97.1 [degF] 147 mm[Hg] 92 mm[Hg] JAIMEE PRIETO RA PA - [facility] 3 14:30:32 Date Recorded Body height Body mass index (BMI) Body weight Respiratory rate Systolic blood pressure Diastolic blood pressure Provider Name and Address Organization Details Last Updated DateTime 3 180.34 cm 32.9 kg/m2 080706. 8 g 18 /min 133 mm[Hg] 93 mm[Hg] ARACELIS JOHNS PA - [facility] 3 08:23:00 Social History Question Answer Notes LastModified by Organizat ion Details LastModified Time Tobacco Smoking Status Never Smoker JAIMEE cruz PA - [facility] 07/11/2022 15:11:07 What Is Your Level Of Alcohol Consumption? Occasional Information not available 07/11/2022 Are You Currently Employed? Yes [email or web address] Information not available 07/25/2022 Have You Had Direct Contact, Or Contact During Intimacy, With Monkeypox Rash, Scabs, Or Body Fluids From A Person With Monkeypox? No Information not available 07/11/2022 Do You Use Any Illicit Or Recreational Drugs? No Information not available 07/11/2022 Have You Recently Traveled Abroad? No Information not available 07/11/2022 Do You Or Have You Ever Used Any Other Forms Of Tobacco Or Nicotine? No Information not available 07/11/2022 Sex: Unknown Functional Status None recorded. Mental Status None recorded. Family History Relationship Description Onset Age of this Age Resolved Age Notes LastModified by Organization Details LastModified Time Mother Diabetes mellitus Not available 10/2022 15:10:50 Mother Hypertensive disorder Not available 10/2022 15:10:57 Medical History No medical history recorded. Immunizations Vaccine Type Date Status Note Provider Nam e and Address Organization Details Recorded Time Tdap 11/25/2020 completed JAIMEE SOTOMAYOR null, PA - [facility] 07/18/2022 14:24:59 COVID-19, mRNA, LNP-S, PF, 30 mcg/0.3 mL dose 12/06/2020 completed JAIMEE ERICK-ARCINIEGA null, PA - [facility] 07/18/2022 14:24:59 COVID-19, mRNA, LNP-S, PF, 30 mcg/0.3 mL dose 12/27/2020 completed JAIMEEERIC SOTOMAYOR null, PA - [facility] 07/18/2022 14:24:59 Past Encounters Encounter ID Performer Location Encounter Start Date Encounter Closed Date Diagnosis/Indication Diagnosis SNOMED-CT Code Diagnosis ICD10 Code [id number] [address] [place] [address] 07/28/2020 12:41:42 07/28/2020 15:37:16 [id number] SHON BARROSO MD [address] [place] [address] 07/11/2022 15:00:15 07/11/2022 17:03:06 Pain of right knee joint 2723776772 33912 M25.561 Sprain of knee 83180594 S83.91XA [id number] KATHY BRYANT [address] [place] [address] 07/18/2022 14:03:31 07/18/2022 15:22:08 Sprain of right knee 3868138895 3377933 S83.91XD Accident w david engaged in work-related activity 32876809 X58.XXXD [id number] Ana Murdock MD [address] [place] [address] 07/25/2022 08:13:17 07/25/2022 09:24:35 Hypertensive disorder 81598618 I10 Sprain of right knee 500 2105501 0984084 S83.91XD Health Concerns Section Related Observation LastModified by Organization Detai ls LastModified Time None Recorded Concern Status LastModified by Organization Details LastModified Time None Recorded Advance Directives Directive None Recorded Payers Encounter Date Sequence Insurance Name Policy Number Policy Urias Covered Member ID Urias Member ID Guarantor Name 07/28/2020 [facility] [id number] Douglas Koroma [id number] Douglas Koroma 07/11/2022 [employer] Douglas Koroma 07/18/2022 [employer] Douglas Koroma 07/25/2022 [employer] Douglas Koroma Notes Date Note Type Note Provider Name and Address Organization Details Recorded Time 07/18/2022 text/html Douglas is a 41 y o M here for right knee injury (work comp visit) at work onset 07/11/22. Was seen here on the same day and x-rays showed no acute fractures or bony abnormalities. He was advised to try diclofenac sodium tablets for pain and ice/wrap/elevate and use topical spray for pain. He notes significant improvement. Able to walk with less pain. KATHY RODRIGUEZ [address] [place], [address], PA - [facility] 07/18/2022 15:20:28 07/25/2022 text/html Douglas is a 41 y o M here for right knee injury (work comp visit) at work onset 07/11/22. Was seen here on the same day and x-rays showed no acute fractures or bony abnormalities. He was advised to try diclofenac sodium tablets for pain and ice/wrap/elevate and use topical spray for pain. Ana Murdock MD [address] [place], [address], PA - [facility] 07/25/2022 09:47:05
[2024-07-11 11:22] LABS: MANUAL DIFF FLAG NO
[2024-07-11 11:48] LABS: Basophils Absolute Auto 0.1 X10*3/uL (0.0-0.2); Basophils Percent Auto 0.8 % (0-2); Eosinophils Absolute Auto 0.2 X10*3/uL (0.0-0.4); Eosinophils Percent Auto 2.4 % (0-4); Hemoglobin 15.1 g/dl (14.0-18.0); Imm Gran Abs Auto 0.02 X10*3/uL (0.00-0.03); Imm Gran Pct Auto 0.3 % (0.0-0.4); Lymphocytes Absolute Auto 1.9 X10*3/uL (1.2-4.9); Lymphocytes Percent Auto 28.1 % (20-40); Mean Corpuscular HGB Conc 33.6 g/dl (31.0-36.0); Mean Corpuscular Hemoglobin 29.2 pg (27.0-33.0); Mean Platelet Volume 10.3 fL (9.4-12.4); Monocytes Absolute Auto 0.4 X10*3/uL (0.1-1.2); Monocytes Percent Auto 6.2 % (2-11); Neutrophils Absolute Auto 4.1 x10*3/uL (2.0-8.3); Neutrophils Percent Auto 62.2 % (45-73); Platelet Count 187 X10*3/uL (160-400); Red Blood Count 5.17 X10*6/uL (4.60-5.80); Red Cell Distribution Width 13.7 % (11.0-16.0); White Blood Count 6.6 X10*3/uL (4.8-10.8)
[2024-07-11 12:01] LABS: Alanine Aminotransferase 61 U/L (0-40); Albumin Level 4.3 g/dL (3.5-5.0); Alkaline Phosphatase 76 U/L (39-117); Anion Gap 12 (12-20); Aspartate Amino Transferase 32 U/L (5-37); Bilirubin Total 0.7 mg/dL (0.0-1.0); Blood Urea Nitrogen 12 mg/dL (9-16); Carbon Dioxide 26 mmol/L (22-29); Chloride 107 mmol/L (96-108); Cholesterol 150 mg/dL (<200); Estimated Glomerular Filt Rate > 60; Glucose Fasting 97 mg/dL (60-99); HDL Cholesterol 29 mg/dL (>40); LDL Cholesterol Calculated 93 mg/dL (<100); Potassium 4.2 mmol/L (3.3-5.1); Sodium 141 mmol/L (135-145); Total Protein 6.8 g/dL (6.5-8.0); Triglycerides 140 mg/dL (<150)
[2024-07-11 12:07] LABS: TSH reflex Free T4 1.12 uIU/mL (0.32-4.0)
[2024-07-11 12:19] LABS: Appearance Urine Clear; Color Urine Yellow; Glucose Urine UA Negative (Negative); Leukocyte Esterase Urine Negative (Negative); Nitrite Urine Negative (Negative); Specific Gravity - Urine 1.025 (1.005-1.025); Urine Blood Negative (Negative); Urine Ketones Negative (Negative); Urine Protein Negative (Neg-Trace)
== END 2024-07-11 08:59 | disposition home or self-care (01) ==
LOC: HO.HMGCLDS 08:58
PROVIDERS: PCP Nurse Practitioner Family; Visit Provider Nurse Practitioner Family
DX: I10 Essential (primary) hypertension (principal)
CPT/HCPCS: 36415; 80053; 80061; 81003; 84443; 85025

== ENCOUNTER 2024-10-07 12:56 | Outpatient (AMB) | payer OTHER, SELFPAY ==
[2024-10-07 12:59] VITALS: BP 132/84; PULSE 89; O2SAT 98; BMI 34.2
--- NOTE | 2024-10-07 12:59 | A.OFFPC_ITS ---
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 Accompanied by: Self / Same As Patient Allergies No Known Allergies Allergy (Verified 10/07/24 13:00) Medication List - Last Reconciled 10/07/24 by Jim Allen, [facility]- amlodipine 5 mg PO DAILY cetirizine (Zyrtec) 10 mg PO DAILY PRN hydrochlorothiazide 25 mg PO DAILY 90 days irbesartan 150 mg PO DAILY metoprolol succinate ER 12.5 mg (1/2 x 25 mg) PO DAILY Tobacco use date assessed: 10/07/24 Dental Screening Dental Screen Date: 10/07/24 Did you have a dental visit in the last 12 months?: Yes Did you have a dental problem in the last 6 months where you did not have access to dental care?: No Was dental information given to patient?: Patient has dentist HPI 6M F/U HPI Details Chief Complaint Follow-up for management of hypertension and evaluation of bicuspid aortic valve History of Present Illness The patient is a 43-year-old male presenting with a history of essential hypertension and a bicuspid aortic valve. He reports consistent and stable blood pressure readings at home, usually in the 120s to 130s systolic and 80s to low 80s diastolic range. He denies any symptoms such as chest pain, shortness of breath, headaches, blurred vision, dizziness, or edema. Additionally, the patient is followed for a bicuspid aortic valve with aortic dilatation, and a follow-up echocardiogram has been scheduled to evaluate the aortic valve and measure the extent of dilatation. Social History Health Maintenance Review of Systems - Cardiovascular: Denies chest pain, den ies edema - Respiratory: Denies shortness of breat h - Neurological: Denies headache, denies blurred vision, denies dizziness Physical Exam General: Cooperative, healthy appearing, comfortable, no acute distress and well developed, obese Orientation: Patient oriented x3 Limitations: No limitations Head: Normal to inspection Ears: Hearing grossly normal bilaterally Nose: Normal external nose present Face and sinus: Normal facial exam Eyes: Appearance normal, both eyes and all related structures Neck: Normal visual inspection and Yes full ROM Respiratory: Normal respiratory effort and able to speak in complete sentences. Clear to auscultation bilaterally Cardiovascular: Regular rate and rhythm. Normal S1 and S2. Systolic murmur noted GI: Normal to inspection. Soft to palpation and nontender Skin: No rashes or lesions noted Neuro: Patient oriented x3 Extremities: Normal to inspection. No edema noted Results - Tests and Diagnostics: Follow-up echoc ardiogram ordered for evaluation of bicuspid aortic valve and aortic dilatation Plan The focus today is on the continued management of the patient's essential hypertension, which is stable based on current home measurements; therefore, no changes to current medication are necessary. For the evaluation of the bicuspid aortic valve and aortic dilatation, a follow-up echocardiogram has already been scheduled. We will closely monitor the echocardiogram results to assess for any changes that might necessitate alterations to the current management approach. Discussion Notes I discussed at length with the patient the status of his essential hypertension, which is stable based on his home readings. We talked about the continued monitoring of his blood pressure to maintain control and avoid complications. Additionally, the need for a follow-up echocardiogram to assess his bicuspid aortic valve and aortic dilatation was reviewed. The importance of this imaging in assessing any progression was emphasized, explaining how results will guide ongoing management. We will address any necessary adjustments upon review of the echocardiogram. The patient was informed of the need for routine check-ups. Patient Instructions - Continue monitoring blood pressure at home - Follow scheduled appointment for echoc ardiogram - Report any new symptoms like chest sigrid n or shortness of breath immediately - Return for follow-up as scheduled [facility] Medical History Ascending aorta dilatation Surgical History No pertinent past surgical history Social History Housing: Apartment Patient Tobacco Use Status: Never used Tobacco e-Cigarette/Vaping Use: Never Used Second Hand Smoke Exposure: No service: No Current occupational status: employed Current occupation: [employer] Current occupational exposures/hazards: No Cognitive needs: No Hearing needs: No Vision needs: No Questionnaire PHQ-9 Over the last 2 weeks, how often have you been bothered by any of the following problems? 1. Little interest or pleasure in doing things: not at all 2. Feeling down, depressed, or hopeless: not at all 3. Trouble falling or staying asleep, or sleeping too much: not at all 4. Feeling tired or having little energy: not at all 5. Poor appetite or overeating: not at all 6. Feeling bad about yourself - or that you are a failure or have let yourself or your family down: not at all 7. Trouble concentrating on things, such as reading the newspaper or watching television: not at all 8. Moving or speaking so slowly that other people could have noticed. Or the opposite - being so fidgety or restless that you have been moving around a lot more than usual: not at all 9. Thoughts that you would be better off or of hurting yourself in some way: not at all Total score: 0 Depression Screening Interpretation: Negative Depression Screening Done: Yes 32583 - PHQ-9 Billing: Yes Source: Developed by Drs. Ez Gutierrez, Cheryl العراقي, Jak Allen and colleagues, with an educational marcela from [employer]. Thrive Questionnaire Date Thrive assessed: 10/07/24 I am a: Patient What is your living situation today?: I have a steady place to live Within the past 12 months, did the food you bought not last and you didn't have the money to get more?: I choose not to answer this question Within the past 12 months, did you worry whether your food would run out before you got money to buy more?: I choose not to answer this question Do you have trouble paying for medicines?: I choose not to answer this question Do you have trouble getting transportation to medical appointments?: I choose not to answer this question Do you have trouble paying your heating and electricity bill?: I choose not to answer this question Do you have trouble taking care of your child, family member or friend?: I choose not to answer this question Do you have trouble with day-to-day activities such as bathing, preparing meals, shopping, managing finances, etc.?: I choose not to answer this question Are you currently unemployed and looking for a job?: I choose not to answer this question Are you interested in more education?: I choose not to answer this question Please select the resources that you would like help with: None Currently or been in a relationship where the following occur: I choose not to answer THRIVE Score: 0 AUDIT C Alcohol Use Questionnaire (AUDIT-C) 1. How often do you have a drink containing alcohol?: Monthly or less 2. How many drinks containing alcohol do you have on a typical day when you are drinking?: 1 or 2 3. How often do you have six or more drinks on one occasion?: Never Total Score: 1 Score Reviewed/Action Taken: Yes JUSTYN-7 AMB Questionnaire JUSTYN-7 Date JUSTYN - 7 assessed: 10/07/24 Feeling nervous, anxious, or on edge: 0 = Not at all Not being able to stop or control worryin = Not at all Worrying too much about different things: 0 = Not at all Trouble relaxin = Not at all Being so restless that it is hard to sit still: 0 = Not at all Becoming easily annoyed or irritable: 0 = Not at all Feeling afraid as if something awful might happen: 0 = Not at all Total JUSTYN-7 score (0-4 normal; 5-9 mild; 10-14 moderate; 15-21 severe): 0 Source: Developed by Drs. Ez Gutierrez, Cheryl العراقي, Jak Allen and colleagues, with an educational marcela from [employer]. JUSTYN-7 Assessment Billing JUSTYN-7 Assessment Tool: JUSTYN-7 Assessment 36150 Physical exam (Primary Care) Vital Signs: Last Vital Signs Pulse 89 10/07/24 12:59 BP 132/84 10/07/24 12:59 Pulse Ox 98 10/07/24 12:59 BMI result Body Mass Index 34.2 Tobacco/Smoking Status: Tobacco use Status Tobacco use date assessed 10/07/24 10/07/24 13:01 Patient Tobacco Use Status Never used Tobacco 10/07/24 13:01 e-Cigarette/Vaping Use Never Used 10/07/24 13:01 PHQ-9: PHQ-9 Score PHQ-9: Total score 0 10/07/24 13:12 Depression Screening Interpretation: Negative Thrive Assessment: Date of Thrive Assessment Date Thrive assessed 10/07/24 10/07/24 13:01 Currently or been in a relationship where the following occur: I choose not to answer Coding Level of Care Code Est Pt Level 3 (72995) Diagnoses HTN (hypertension) I10 Systolic murmur R01.1 Ascending aorta dilatation I77.810 Aortic stenosis I35.0 Bicuspid aortic valve Q23.1 Additional Codes JUSTYN-7 Assessment Billing - JUSTYN-7 Assessment Tool: JUSTYN-7 Assessment 79544 ([id number]) PHQ-9 - 70010 - PHQ-9 Billing: Yes ([id number]) Assessment & Plan Assessment & Plan (1) HTN (hypertension): Code(s): I10 - Essential (primary) hypertension Category: Medical (2) Systolic murmur: Code(s): R01.1 - Cardiac murmur, unspecified Category: Medical (3) Ascending aorta dilatation: Code(s): I77.810 - Thoracic aortic ectasia Category: Medical (4) Aortic stenosis: Code(s): I35.0 - Nonrheumatic aortic (valve) stenosis Category: Medical (5) Bicuspid aortic valve: Code(s): Q23.1 - Congenital insufficiency of aortic valve Category: Medical Plan . Orders: Orders Lipid Panel Today I10 - Essential (primary) hypertension, I35.0 - Nonrheumatic aortic (valve) stenosis, I77.810 - Thoracic aortic ectasia, Q23.1 - Congenital insufficiency of aortic valve, R01.1 - Cardiac murmur, unspecified Complete Blood Count Auto Diff Today I10 - Essential (primary) hypertension, I35.0 - Nonrheumatic aortic (valve) stenosis, I77.810 - Thoracic aortic ectasia, Q23.1 - Congenital insufficiency of aortic valve, R01.1 - Cardiac murmur, unspecified Comprehensive [place]. Panel Fast Today I10 - Essential (primary) hypertension, I35.0 - Nonrheumatic aortic (valve) stenosis, I77.810 - Thoracic aortic ectasia, Q23.1 - Congenital insufficiency of aortic valve, R01.1 - Cardiac murmur, unspecified TSH reflex Free T4 Today I10 - Essential (primary) hypertension, I35.0 - Nonrheumatic aortic (valve) stenosis, I77.810 - Thoracic aortic ectasia, Q23.1 - Congenital insufficiency of aortic valve, R01.1 - Cardiac murmur, unspecified UA CC w/rflx Micro + Cult Today I10 - Essential (primary) hypertension, I35.0 - Nonrheumatic aortic (valve) stenosis, I77.810 - Thoracic aortic ectasia, Q23.1 - Congenital insufficiency of aortic valve, R01.1 - Cardiac murmur, unspecified
--- OUTSIDE RECORDS SUMMARY | 2024-10-07 15:33 | XMS_ITS | Data Portability ---
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 Plan of Treatment Reminders Order Date Submit Date Provider Last Modified By Organization Details Last Modified Time Details Appointments None recorded. Lab None recorded. Referral None recorded. Procedures None recorded. Surgeries None recorded. Imaging XR, knee, 3 view 2022 023 [facility], [address] [place] [address], [address], 17:24:41 Medication Orders diclofenac 1 % topical gel 2022 023 [facility][id number], [address] [place], [address], 3 15:16:23 diclofenac sodium 75 mg tablet,kandace yed release 2022 023 [facility][id number], [address] [place], [address], 3 14:27:29 Patient TargetsNo targets recorded. Patient Instructions Encounter Date Encounter Id Patient Instructions Last Modified By Organization Details Last Modified Time 07/18/2022 [id number] knee sprain: car e instructions [email or web address] Not available 07/18/2022 15:04:03 learning about rice (rest, ice, compression, and elevation) [email or web address] Not available 07/18/2022 15:04:02 Reason for Referral None Reported. Results Created Date Observation Date Name Description Value Unit Range Abnormal Flag Note LastModifiedBy Organization Detail LastModifiedTime 07/11/19 23 07/11/2022 XR, knee, 3 view No observ ation record ed. [email or web address] [facility] [address] [place], [address], 07/12/2022 12:13:03 Result Notes None recorded. Problems Name Problem SNOMED Code Status Onset Date Resolution Date Notes Provider Name and Address Organization Details Recorded Time Hypertensive disorder 85943740 Active JAIMEE PRIETO RA null, [place] - [facility] 3 15:09:48 Obese 292880551 Active 2022 ARACELIS JOHNS null, PA - [facility] 3 08:20:43 Notes:heart valve problem Problem Notes None recorded. Procedures Surgical History None recorded. Imaging Results Imaging Date Name Status LastModified by Organiz ation Details LastModified Time 07/11/2022 XR, knee, 3 view completed [id number] [facility] [address] [place], [address], 07/12/2022 12:13:03 Procedure Notes None recorded. Medical [...] height Body mass index (BMI) Body weight Pain severity - 0-10 verbal numeric rating [Score] - Reported Respiratory rate Oxygen saturation Oxygen saturation in Arterial blood by Pulse oximetry Heart rate Body temperature Systolic blood pressure Diastolic blood pressure Provider Name and Address Organization Details Last Updated DateTime 3 180.34 cm 32.9 kg/m2 776323. 8 g 3 18 /min 99 % 99 % 62 /min 97.4 [degF] 124 mm[Hg] 88 mm[Hg] JAIMEE PRIETO RA [place] - [facility] 3 15:12:58 Date Recorded Body height Body mass index (BMI) Body weight Oxygen saturation Oxygen saturation in Arterial blood by Pulse oximetry Pain severity - 0-10 verbal numeric rating [Score] - Reported Heart rate Respiratory rate Body temperature Systolic blood pressure Diastolic blood pressure Provider Name and Address Organization Details Last Updated DateTime 3 180.34 cm 32.9 kg/m2 058518. 8 g 100 % 100 % 2 85 /min 18 /min 97.1 [degF] 147 mm[Hg] 92 mm[Hg] JAIMEE PRIETO [place] - [facility] 3 14:30:32 Date Recorded Body height Body mass index (BMI) Body weight Respiratory rate Pain severity - 0-10 verbal numeric rating [Score] - Reported Systolic blood pressure Diastolic blood pressure Provider Name and Address Organization Details Last Updated DateTime 3 180.34 cm 32.9 kg/m2 213167. 8 g 18 /min 0 133 mm[Hg] 93 mm[Hg] ARACELIS JOHNS [place] - [facility] 3 08:23:00 Social History Question Answer Notes LastModified by Organizat ion Details LastModified Time Tobacco Smoking Status Never Smoker JAIMEE cruz [place] - [facility] 07/11/2022 15:11:07 What Is Your Level Of Alcohol Consumption? Occasional Information not available 07/11/2022 Are You Currently Employed? Yes [email or web address] Information not available 07/25/2022 Have You [...] Details Recorded Time Tdap 11/25/2020 completed JAIMEE cruz PA - [facility] 07/18/2022 14:24:59 COVID-19, mRNA, LNP-S, PF, 30 mcg/0.3 mL dose 12/06/2020 completed JAIMEE SOTOMAYOR null, PA - [facility] 07/18/2022 14:24:59 COVID-19, mRNA, LNP-S, PF, 30 mcg/0.3 mL dose 12/27/2020 completed JAIMEE cruz PA - [facility] 07/18/2022 14:24:59 Past Encounters Encounter ID Performer Location Encounter Start Date Encounter Closed Date Diagnosis/Indication Diagnosis SNOMED-CT Code Diagnosis ICD10 Code Diagnosis Note [id number] [address] [place] [address] 07/28/2020 12:41:42 07/28/2020 15:37:16 [id number] SHON BARROSO MD [address] [facility] [address] [place] [address] 07/11/2022 15:00:15 07/11/2022 17:03:06 Pain of right knee joint [id number] 47123 M25.561 Sprain of knee 30444836 S83.91XA Topical Pain ReliefStop Pain Roll OnApply to affected area 3-4 times a day as needed for pain relief. IceApply ice to injured area for 20 minutes every hour while awake. Never apply ice pack directly against the skin to avoid frostbite. You may use a towel, washcloth, elastic bandage, or layer of clothing to separate the ice pack from the skin. [id number] [facility] [address] [facility] [facility] [place] [address] 07/18/2022 14:03:31 07/18/2022 15:22:08 Sprain of right knee [id number] 0226262 S83.91XD Return on 07/25/2022 for follow up visit. If symptoms are not improving by then we will consider referral to Physical Therapy. Josi hernandez engaged in work-related activity [id number] X58.XXXD [id number] Ana Murdock MD [facility] [facility] [address] [facility] [place] [address] 07/25/2022 08:13:17 07/25/2022 09:24:35 Hypertensive disorder 24419401 I10 Follow up PCP regarding Blood pressure Sprain of right knee 315 7433025 3877509 S83.91XD Exam was normal, no limited ROM and no weakness. Patient can return to work full duty.Recom mend stretching quadriceps and hamstrings intermitte ntly Health Concerns Section Related Observation LastModified by Organization Detai ls LastModified Time None Recorded Concern Status LastModified by Organization Details LastModified Time None Recorded Advance Directives Directive None Recorded Payers Encounter Date Sequence Insurance Name Policy Number Policy Urias Covered Member ID Urias Member ID Guarantor Name 07/28/2020 1 [place]: KORY (PPO) [id number] Douglas Koroma [id number] [place] Koroma 07/11/2022 [employer] Harold Management Cole Franci 07/18/2022 [employer] Harold Management Douglas Koroma 07/25/2022 [employer] Harold Management Douglas Franci Notes Date Note Type Note Provider Name [...] pain. KATHY RODRIGUEZ [address] [place], [address], [facility] [employer] 07/18/2022 15:20:28 07/25/2022 text/html Douglas is a [...] Ana Murdock MD [address] [place], [address], [facility] [employer] 07/25/2022 09:47:05
== END 2024-10-07 13:35 | disposition home or self-care (01) ==
LOC: HO.HMCC 12:57
PROVIDERS: PCP Nurse Practitioner Family; Visit Provider Nurse Practitioner Family
DX: I10 Essential (primary) hypertension (principal); R01.1 Cardiac murmur, unspecified; I77.810 Thoracic aortic ectasia; I35.0 Nonrheumatic aortic (valve) stenosis; Q23.1 Congenital insufficiency of aortic valve

== ENCOUNTER → 2024-10-07 12:56 | Outpatient (BNVA) | payer OTHER, SELFPAY | PROVIDERS: PCP Nurse Practitioner Family; Visit Provider Nurse Practitioner Family | DX: I10 Essential (primary) hypertension (principal); R01.1 Cardiac murmur, unspecified; I77.810 Thoracic aortic ectasia; I35.0 Nonrheumatic aortic (valve) stenosis; Q23.1 Congenital insufficiency of aortic valve | CPT/HCPCS: 96127 ==

== ENCOUNTER 2025-04-03 08:40 | Outpatient (REF) | payer OTHER, SELFPAY ==
[2025-04-03 11:12] LABS: MANUAL DIFF FLAG NO
[2025-04-03 11:14] LABS: Hematocrit 42.7 % (42.0-52.0); Hemoglobin 14.5 g/dl (14.0-18.0); Imm Gran Abs Auto 0.02 X10*3/uL (0.00-0.03); Imm Gran Pct Auto 0.3 % (0.0-0.4); Lymphocytes Absolute Auto 1.9 X10*3/uL (1.2-4.9); Mean Corpuscular HGB Conc 34.0 g/dl (31.0-36.0); Mean Corpuscular Hemoglobin 29.2 pg (27.0-33.0); Mean Corpuscular Volume 86.1 fL (80.0-98.0); NRBC Abs Auto 0.000 X10*3/uL (0.0-0.012); NRBC Pct Auto 0.0 /100WBC (0.0-0.2); Platelet Count 189 X10*3/uL (160-400); Red Blood Count 4.96 X10*6/uL (4.60-5.80); White Blood Count 6.7 X10*3/uL (4.8-10.8)
[2025-04-03 11:39] LABS: Appearance Urine Clear; Glucose Urine UA Negative (Negative); PH 5.5 (5.0-9.0); Specific Gravity - Urine 1.020 (1.005-1.025)
[2025-04-03 11:53] LABS: Alanine Aminotransferase 40 U/L (0-40); Albumin Level 4.2 g/dL (3.5-5.0); Alkaline Phosphatase 75 U/L (39-117); Anion Gap 11 (12-20); Aspartate Amino Transferase 30 U/L (5-37); Blood Urea Nitrogen 11 mg/dL (9-16); Calcium 8.9 mg/dL (8.4-10.2); Carbon Dioxide 28 mmol/L (22-29); Chloride 105 mmol/L (96-108); Cholesterol 150 mg/dL (<200); Estimated Glomerular Filt Rate > 60; HDL Cholesterol 28 mg/dL (>40); Potassium 3.9 mmol/L (3.3-5.1); Sodium 140 mmol/L (135-145); Total Protein 6.7 g/dL (6.5-8.0); Triglycerides 130 mg/dL (<150)
== END 2025-04-03 08:41 | disposition home or self-care (01) ==
LOC: HO.HMGCLDS 08:40
PROVIDERS: PCP Nurse Practitioner Family; Visit Provider Nurse Practitioner Family
DX: I10 Essential (primary) hypertension (principal); I77.810 Thoracic aortic ectasia; I35.0 Nonrheumatic aortic (valve) stenosis; Q23.1 Congenital insufficiency of aortic valve; R01.1 Cardiac murmur, unspecified
CPT/HCPCS: 36415; 80053; 80061; 81003; 84443; 85025

== ENCOUNTER 2025-04-12 14:38 | Outpatient (AMB) | payer OTHER, SELFPAY ==
--- NOTE | 2025-04-12 14:51 | A.OFFPC_ITS ---
Vital Signs 04/12/25 14:52 Height 5 ft 11 in Weight 240 lb BMI 33.5 BP 140/100 H Blood Pressure Location Lt brachial Position Sitting Respiration 16 Pulse 73 Pulse Source Pulse Oximeter Temp 98.6 F Temp Source Oral Pulse Oximetry (%) 98 Oxygen Delivery Method Room Air Intake Visit Reasons: PE Doctor Of Podiatry Required: No Accompanied by: Self / Same As Patient Allergies No Known Allergies Allergy (Verified 04/12/25 15:52) Medication List - Last Reconciled 04/12/25 by JESUS MANUEL Clayton- amlodipine 5 mg PO DAILY cetirizine (Zyrtec) 10 mg PO DAILY PRN hydrochlorothiazide 25 mg PO DAILY 90 days irbesartan 150 mg PO DAILY metoprolol succinate ER 12.5 mg (1/2 x 25 mg) PO DAILY Tobacco use date assessed: 04/12/25 Dental Screening Dental Screen Date: 04/12/25 Did you have a dental visit in the last 12 months?: Yes Did you have a dental problem in the last 6 months where you did not have access to dental care?: No Was dental information given to patient?: Patient has dentist HPI PE HPI Details History of Present Illness The patient is a 44-year-old male presenting for a physical examination and management of chronic conditions. The patient has a history of aortic stenosis with a bicuspid valve, which is currently asymptomatic. The last echocardiogram was performed last year, and the patient is being referred to cardiology for further evaluation. The patient described elevated blood pressure readings, although he notes that his blood pressure is lower at home. The current medication regimen includes metoprolol, which is being increased from 12.5 mg to 25 mg once daily to better manage his hypertension. Health Maintenance Social History Review of Systems - Cardiovascular: Denies chest pain, dys pnea, or palpitations - Gastrointestinal: Denies abdominal sigrid n, blood in stool, constipation, or diarrhea - Psychiatric: Denies suicidal or homici arnold ideation Physical Exam General: Cooperative, healthy appearing, comfortable, no acute distress and well developed Orientation: Patient oriented x3 Limitations: No limitations Head: Normal to inspection Ears: Right ear with cerumen after ear lavage, TM was easily seen, no signs of infection Nose: Normal external nose present Face and sinus: Normal facial exam Eyes: Appearance normal, both eyes and all related structures Neck: Normal visual inspection and Yes full ROM Respiratory: Normal respiratory effort and able to speak in complete sentences. Clear to auscultation bilaterally Cardiovascular: Regular rate and rhythm. Normal S1 and S2, systolic murmur present GI: Normal to inspection. Soft to palpation and nontender : testicles without masses/lesions and no hernias appreciated Skin: No rashes or lesions noted Neuro: Patient oriented x3 Extremities: Normal to inspection, no edema Results Plan 1. Aortic Stenosis With Bicuspid Valve The patient will be referred to cardiology for further evaluation of his aortic stenosis with bicuspid valve, as he remains asymptomatic. 2. Hypertension The patient's metoprolol dosage will be increased from 12.5 mg to 25 mg once daily to better manage his hypertension. He is advised to monitor his blood pressure at home and report the readings through the patient portal. Discussion Notes I discussed with the patient the need for cardiology referral for his aortic stenosis with bicuspid valve, given his asymptomatic status. We also talked about increasing his metoprolol dosage to manage his hypertension better and the importance of monitoring his blood pressure at home. Patient Instructions - Follow up with cardiology for further evaluation of aortic stenosis. - Increase metoprolol dosage to 25 mg on ce daily. - Monitor blood pressure at home and rep ort readings through the patient portal. [facility] Medical History Ascending aorta dilatation Surgical History No pertinent past surgical history Social History Housing: Apartment Patient Tobacco Use Status: Never used Tobacco e-Cigarette/Vaping Use: Never Used Second Hand Smoke Exposure: No service: No Current occupational status: employed Current occupation: [employer] Current occupational exposures/hazards: No Cognitive needs: No Hearing needs: No Vision needs: No Questionnaire PHQ-9 Over the last 2 weeks, how often have you been bothered by any of the following problems? 1. Little interest or pleasure in doing things: not at all 2. Feeling down, depressed, or hopeless: not at all 3. Trouble falling or staying asleep, or sleeping too much: not at all 4. Feeling tired or having little energy: not at all 5. Poor appetite or overeating: not at all 6. Feeling bad about yourself - or that you are a failure or have let yourself or your family down: not at all 7. Trouble concentrating on things, such as reading the newspaper or watching television: not at all 8. Moving or speaking so slowly that other people could have noticed. Or the opposite - being so fidgety or restless that you have been moving around a lot more than usual: not at all 9. Thoughts that you would be better off or of hurting yourself in some way: not at all Total score: 0 Depression Screening Interpretation: Negative Depression Screening Done: Yes 04089 - PHQ-9 Billing: Yes Source: Developed by Drs. Ez Gutierrez, Cheryl العراقي, Jak Allen and colleagues, with an educational marcela from [employer]. Thrive Questionnaire Date Thrive assessed: 10/01/24 I am a: Patient What is your living situation today?: I have a steady place to live Within the past 12 months, did the food you bought not last and you didn't have the money to get more?: I choose not to answer this question Within the past 12 months, did you worry whether your food would run out before you got money to buy more?: I choose not to answer this question Do you have trouble paying for medicines?: I choose not to answer this question Do you have trouble getting transportation to medical appointments?: I choose not to answer this question Do you have trouble paying your heating and electricity bill?: I choose not to answer this question Do you have trouble taking care of your child, family member or friend?: I choose not to answer this question Do you have trouble with day-to-day activities such as bathing, preparing meals, shopping, managing finances, etc.?: I choose not to answer this question Are you currently unemployed and looking for a job?: I choose not to answer this question Are you interested in more education?: I choose not to answer this question Please select the resources that you would like help with: None Currently or been in a relationship where the following occur: I choose not to answer THRIVE Score: 0 JUSTYN-7 AMB Questionnaire JUSTYN-7 Date JUSTYN - 7 assessed: 04/12/25 Feeling nervous, anxious, or on edge: 0 = Not at all Not being able to stop or control worryin = Not at all Worrying too much about different things: 0 = Not at all Trouble relaxin = Not at all Being so restless that it is hard to sit still: 0 = Not at all Becoming easily annoyed or irritable: 0 = Not at all Feeling afraid as if something awful might happen: 0 = Not at all Total JUSTYN-7 score (0-4 normal; 5-9 mild; 10-14 moderate; 15-21 severe): 0 Source: Developed by Drs. Ez Gutierrez, Cheryl العراقي, Jak Allen and colleagues, with an educational marcela from [employer]. JUSTYN-7 Assessment Billing JUSTYN-7 Assessment Tool: JUSTYN-7 Assessment [id number] Physical exam (Primary Care) Vital Signs: Last Vital Signs Temp 98.6 F 04/12/25 14:52 Pulse 73 04/12/25 14:52 Resp 16 04/12/25 14:52 BP 140/100 H 04/12/25 14:52 Pulse Ox 98 04/12/25 14:52 Oxygen Delivery Method Room Air 04/12/25 14:52 BMI result Body Mass Index 33.5 Tobacco/Smoking Status: Tobacco use Status Tobacco use date assessed 04/12/25 04/12/25 14:56 Patient Tobacco Use Status Never used Tobacco 04/12/25 14:56 e-Cigarette/Vaping Use Never Used 04/12/25 14:56 PHQ-9: PHQ-9 Score PHQ-9: Total score 0 04/12/25 14:56 Depression Screening Interpretation: Negative Thrive Assessment: Date of Thrive Assessment Date Thrive assessed 10/01/24 04/12/25 14:56 Currently or been in a relationship where the following occur: I choose not to answer Coding Level of Care Code Est Pt Level 3 (14941) Est Pt Prev Care 40-64y(05337) Diagnoses Physical exam Z00.00 Bicuspid aortic valve Q23.1 Aortic stenosis I35.0 Ascending aorta dilatation I77.810 Additional Codes JUSTYN-7 Assessment Billing - JUSTYN-7 Assessment Tool: JUSTYN-7 Assessment 50956 ([id number]) PHQ-9 - 81801 - PHQ-9 Billing: Yes ([id number]) Assessment & Plan Assessment & Plan (1) Physical exam: Code(s): Z00.00 - Encounter for general adult medical examination without abnormal findings Category: Medical (2) Bicuspid aortic valve: Code(s): Q23.1 - Congenital insufficiency of aortic valve Category: Medical (3) Aortic stenosis: Code(s): I35.0 - Nonrheumatic aortic (valve) stenosis Category: Medical (4) Ascending aorta dilatation: Code(s): I77.810 - Thoracic aortic ectasia Category: Medical Plan . Orders: Orders Complete Blood Count Auto Diff Today Z00.00 - Encounter for general adult medical examination without abnormal findings Comprehensive [place]. Panel Fast Today Z00.00 - Encounter for general adult medical examination without abnormal findings TSH reflex Free T4 Today Z00.00 - Encounter for general adult medical examination without abnormal findings UA CC w/rflx Micro + Cult Today Z00.00 - Encounter for general adult medical examination without abnormal findings Lipid Panel Today Z00.00 - Encounter for general adult medical examination without abnormal findings Referrals Cardiology Referral I35.0 - Nonrheumatic aortic (valve) stenosis, I77.810 - Thoracic aortic ectasia, Q23.1 - Congenital insufficiency of aortic valve Medications: Changed From metoprolol succinate ER 12.5 mg (1/2 x 25 mg) PO DAILY 45 tabs 1RF To metoprolol succinate ER 25 mg PO DAILY 90 tabs 1RF
[2025-04-12 14:52] VITALS: BP 140/100; PULSE 73; RESP 16; TEMP 37; O2SAT 98; BMI 33.5
== END 2025-04-12 16:14 | disposition home or self-care (01) ==
LOC: HO.HMCC 14:39
PROVIDERS: PCP Nurse Practitioner Family; Visit Provider Nurse Practitioner Family
DX: Z00.00 Encounter for general adult medical examination without abnormal findings (principal); Q23.1 Congenital insufficiency of aortic valve; I35.0 Nonrheumatic aortic (valve) stenosis; I77.810 Thoracic aortic ectasia

== ENCOUNTER → 2025-04-12 14:38 | Outpatient (BNVA) | payer OTHER, SELFPAY | PROVIDERS: PCP Nurse Practitioner Family; Visit Provider Nurse Practitioner Family | DX: Z00.00 Encounter for general adult medical examination without abnormal findings (principal); I10 Essential (primary) hypertension; Q23.1 Congenital insufficiency of aortic valve; I35.0 Nonrheumatic aortic (valve) stenosis; I77.810 Thoracic aortic ectasia | CPT/HCPCS: 96127 ==

== ENCOUNTER 2025-06-05 13:12 | Outpatient (AMB) | payer OTHER, SELFPAY ==
--- OUTSIDE RECORDS SUMMARY | 2025-06-05 13:15 | XMS_ITS | Data Portability ---
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 Plan of Treatment Reminders Order Date Submit Date Provider Last Modified By Organization Details Last Modified Time Details Appointments None recorded. Lab None recorded. Referral None recorded. Procedures None recorded. Surgeries None recorded. Imaging XR, knee, 3 view 2022 023 [facility], [address] [place] [address], [address], 17:24:41 Medication Orders diclofenac 1 % topical gel 2022 023 [id number], [address] [place], [address], 3 15:16:23 diclofenac sodium 75 mg tablet,kandace yed release 2022 023 [id number], [address] [place], [address], 3 14:27:29 Patient TargetsNo targets recorded. Patient Instructions Encounter Date Encounter Id Patient Instructions Last Modified By Organization Details Last Modified Time 07/18/2022 [id number] knee sprain: car e instructions [email or web address] Not available 07/18/2022 15:04:03 learning about rice (rest, ice, compression, and elevation) [email or web address] Not available 07/18/2022 15:04:02 Reason for Referral None Reported. Results Created Date Observation Date Name Description Value Unit Range Abnormal Flag Note LastModifiedBy Organization Detail LastModifiedTime 07/11/19 23 07/11/2022 XR, knee, 3 view No observ ation record ed. [id number] [facility] [address] [facility] [place], [address], 07/12/2022 12:13:03 Result Notes None recorded. Problems Name Problem SNOMED Code Status Onset Date Resolution Date Notes Provider Name and Address Organization Details Recorded Time Hypertensive disorder 96242421 Active JAIMEE cruz PA [facility] 3 15:09:48 Obese [id number] Active 2022 ARACELIS cruz PA [place] 3 08:20:43 Notes:heart valve problem Problem Notes None recorded. Medical Equipment None Reported. [...] [Score] - Reported Respiratory rate Oxygen saturation Heart rate Body temperature Systolic And Diastolic Provider Name and Address Organization Details Last Updated DateTime 3 180.34 cm 32.9 kg/m2 479476. 8 g 3 18 /min 99 % 62 /min 97.4 [degF] 124/88 mm[Hg] JAIMEE Moses [facility] 3 15:12:58 Date Recorded Body height Body mass index (BMI) Body weight Oxygen saturation Pain severity - 0-10 verbal numeric rating [Score] - Reported Heart rate Respiratory rate Body temperature Systolic And Diastolic Provider Name and Address Organization Details Last Updated DateTime 3 180.34 cm 32.9 kg/m2 066757. 8 g 100 % 2 85 /min 18 /min 97.1 [degF] 147/92 mm[Hg] JAIMEE IDA BUTCHER PA - [facility] 3 14:30:32 Date Recorded Body height Body mass index (BMI) Body weight Respiratory rate Pain severity - 0-10 verbal numeric rating [Score] - Reported Systolic And Diastolic Provider Name and Address Organization Details Last Updated DateTime 3 180.34 cm 32.9 kg/m2 738197. 8 g 18 /min 0 133/93 mm[Hg] ARACELIS ANDREAS PA - [facility] 3 08:23:00 Social History Question Answer Notes LastModified by [employer] Details LastModified Time Tobacco Smoking Status Never Smoker JAIMEE cruz PA - [facility] 07/11/2022 15:11:07 Have You Had Direct Contact, Or Contact During Intimacy, With Monkeypox Rash, Scabs, Or Body Fluids From A Person With Monkeypox? No Information not available 07/11/2022 Have You Recently Traveled Abroad? No Information not available 07/11/2022 Sex: Unknown Functional Status Question Answer Note LastModified by [employer] Details LastModified Time Do you use any illicit or recreational drugs? No Information not available 07/11/2022 Do you or have you ever used any other forms of tobacco or nicotine? No Information not available 07/11/2022 What is your level of alcohol consumption? Occasional Information not available 07/11/2022 Are you currently employed? Yes [email or web address] Information not available 07/25/2022 Mental Status None recorded. Family History Relationship [...] 30 mcg/0.3 mL dose 12/06/2020 completed JAIMEE MULLERA null, PA - [facility] 07/18/2022 14:24:59 COVID-19, mRNA, LNP-S, PF, 30 mcg/0.3 mL dose 12/27/2020 completed JAIMEE MULLERA null, PA - [facility] 07/18/2022 14:24:59 Past Encounters Encounter ID Performer Location Encounter Start Date Encounter Closed Date Diagnosis/Indication Diagnosis SNOMED-CT Code Diagnosis ICD10 Code Diagnosis IMO Codes Diagnosis Note [id number] [address] [facility] [place] [address] 07/28/2020 12:41:42 07/28/2020 15:37:16 [id number] SHON BARROSO MD [address] [facility] [place] [address] 07/11/2022 15:00:15 07/11/2022 17:03:06 Pain of right knee joint 1204173035 27034 M25.561 Sprain of knee 36709168 S83.91XA Topical Pain ReliefStop Pain Roll OnApply to affected area 3-4 times a day as needed for pain relief. IceApply ice to injured area for 20 minutes every hour while awake. Never apply ice pack directly against the skin to avoid frostbite. You may use a towel, washcloth, elastic bandage, or layer of clothing to separate the ice pack from the skin. [id number] KATHY BRYANT [address] [place] [address] 07/18/2022 14:03:31 07/18/2022 15:22:08 Sprain of right knee [id number] 2449539 S83.91XD Return on 07/25/2022 for follow up visit. If symptoms are not improving by then we will consider referral to Physical Therapy. Accident kyle hernandez engaged in work-related activity [id number] X58.XXXD [id number] Ana Murdock MD [address] [facility] [place] [address] 07/25/2022 08:13:17 07/25/2022 09:24:35 Hypertensive disorder 75297824 I10 Follow up PCP regarding Blood pressure Sprain of right knee 441 [id number] 2939037 S83.91XD Exam was normal, no limited ROM and no weakness. Patient can return to work full duty.Recom mend stretching quadriceps and hamstrings intermitte ntly Health Concerns Section Related Observation LastModified by Organization Detai ls LastModified Time None Recorded Concern Status LastModified by Organization Details LastModified Time None Recorded Advance Directives Directive None Recorded Payers Insurance Date Sequence Insurance Name Policy Number Policy Urias Covered Member ID Urias Member ID Guarantor Name 07/17/2022 1 JOAO (O) [id number] Douglas Koroma [id number] Douglas Koroma 07/26/2022 [employer] Douglas Koroma Notes Date Note Type Note Provider Name and Address Organization Details Recorded Time 07/11/2022 text/html KneeReported by Patient SHON BARROSO MD [address] [place], [address], [employer] [facility] 07/11/2022 16:56:32 07/18/2022 text/html Douglas is a 41 yo M here for right knee injury (work comp visit) at work onset 07/11/22. Was seen here on the same day and x-rays showed no acute fractures or bony abnormalities. He was advised to try diclofenac sodium tablets for pain and ice/wrap/elevate and use topical spray for pain. He notes significant improvement. Able to walk with less pain. KATHY RODRIGUEZ [address] [place], [address], [place] [facility] 07/18/2022 15:20:28 07/25/2022 text/html Douglas is a 41 yo M here for right knee injury (work comp visit) at work onset 07/11/22. Was seen here on the same day and x-rays showed no acute fractures or bony abnormalities. He was advised to try diclofenac sodium tablets for pain and ice/wrap/elevate and use topical spray for pain. Ana Murdock MD [address] [place], [address], [place] - [facility] 07/25/2022 09:47:05
[2025-06-05 13:20] VITALS: BP 110/68; PULSE 73; RESP 16; TEMP 36.7; O2SAT 98; BMI 33.6
--- NOTE | 2025-06-05 13:20 | AM.OFFWIN_ITS ---
Intake Vital Signs 06/05/25 13:20 Height 5 ft 11 in Weight 109.316 kg BMI 33.6 BP 110/68 Blood Pressure Location Lt brachial Position Sitting Respiration 16 Pulse 73 Pulse Source Pulse Oximeter Temp 98.0 F Temp Source Oral Pulse Oximetry (%) 98 Oxygen Delivery Method Room Air Intake Visit Reasons: EP Lump on neck pain and discomfort Intake Note: Pt is here today c/o lump on Lt side of neck which is painful and discomfort x3days Patient Tobacco Use Status: Never used Tobacco Allergies No Known Allergies Allergy (Verified 06/05/25 13:30) HPI HPI Comments History of Present Illness Details Chief Complaint: ?Painful lump on the left side of my neck for the past three days.? History of Present Illness: 44-year-old male with a history of ascen ding aorta dilation, aortic stenosis, bicuspid aortic valve, and hypertension presents with a painful lump on the left side of the neck. The mass has been present for three days and is worsening. Patient reports pressure when the area is palpated. Pain intensifies a few hours after palpation and when turning or moving the neck to the left; he compensates by tilting his body to the left to avoid discomfort. Headaches occur when he is off ibuprofen and pain increases. Denies chest pain, shortness of breath, difficulty swallowing, and voice changes. No fevers, chills, or vision changes reported today. Patient states he had a similar lump before, possibly a cyst or fibrosis. 44-year-old male with painful indurated left neck mass, most consistent with a developing abscess. Problem #1: Left neck indurated mass ? likely developing abscess Assessment: Three-day history of worsening pain and induration; exam notable for firm mass without fluctuation, suggesting abscess formation not yet ready for drainage. Plan: * Cephalexin 500 mg orally every 4 hours for 7 days (prescription sent). * Warm compresses and hot showers to the affected area. * Avoid manipulation (no squeezing, pinching, or pressure to the mass). * Return to clinic or Emergency Department for any fever, chills, worsening pain, vision changes, new headaches, or other concerning symptoms. * If no improvement after 5 days, seek further evaluation for possible drainage. Follow-Up: Patient to follow up sooner if symptoms worsen or as directed above. [facility] Medical History Ascending aorta dilatation Surgical History No pertinent past surgical history Social History Housing: Apartment Patient Tobacco Use Status: Never used Tobacco e-Cigarette/Vaping Use: Never Used Second Hand Smoke Exposure: No service: No Current occupational status: employed Current occupation: [employer] Current occupational exposures/hazards: No Cognitive needs: No Hearing needs: No Vision needs: No Review of Systems Narrative Review of Systems: ? General: No fever or chills reported. ? HEENT: Positive for painful left neck mass; headaches only when off ibuprofen. Denies vision changes, voice changes, dysphagia. ? Cardiovascular: Denies chest pain. ? Respiratory: Denies shortness of breath. ? Musculoskeletal: Pain with neck movement to the left. (Other systems not discussed.) Const All systems reviewed & are unremarkable except as noted in HPI and below Physical Exam Exam Exam: Physical Exam: ? General: Alert, in no acute distress. ? Neck: Left posterior neck with indurated, firm, tender area; no fluctuance appreciated.2cm x 2 cm no overlying erythema or warmth. No menigeal siggns ? Cardiovascular, Respiratory, Abdomen, Skin, Neuro: WNL Vital Signs: Last Vital Signs Temp 98.0 F 06/05/25 13:20 Pulse 73 06/05/25 13:20 Resp 16 06/05/25 13:20 BP 110/68 06/05/25 13:20 Pulse Ox 98 06/05/25 13:20 Oxygen Delivery Method Room Air 06/05/25 13:20 BMI result Body Mass Index 33.6 vss Assessment & Plan Assessment & Plan (1) Abscess: Code(s): L02.91 - Cutaneous abscess, unspecified Plan Take your medications as prescribed. If you were prescribed antibiotics today, it is important that you take your medication to their entirety, do not skip any doses, do not finish them early. Follow-up with your primary care provider this week. Return to the emergency department with new or worsening symptoms. In case of emergency call 911 Medications: New cephalexin 500 mg PO QID 28 caps 0RF 7 days Coding Level of Care Code Est Pt Level 3 (13042) Diagnoses Abscess L02.91
== END 2025-06-05 13:51 | disposition home or self-care (01) ==
PROVIDERS: PCP Nurse Practitioner Family; Visit Provider Physician Assistant
DX: L02.91 Cutaneous abscess, unspecified (principal)

== ENCOUNTER 2025-06-13 08:06 | Emergency (ER) | payer OTHER, SELFPAY ==
[2025-06-13 08:10] VITALS: BP 133/83; PULSE 71; RESP 18; TEMP 36.4; O2SAT 97; BMI 33.7
--- NOTE | 2025-06-13 08:50 | ED.GENADULT ---
HPI - General Adult General Chief complaint: Skin/Abscess/Foreign Body Stated complaint: cyst on the back of neck, sent by pcp Time Seen by Provider: 06/13/25 08:49 Source: patient, RN notes reviewed and old records reviewed Mode of arrival: ambulatory Limitations: no limitations History of Present Illness ED Provider: Carlito HPI narrative: Patient is a 44-year-old male presenting to the emergency department with complaint of abscess to the back of his neck. States that he was seen at urgent Care recently and put on a course of Keflex but the area has not improved. He notes that the area also has not worsened. Denies fever, chills, body aches. complaint: abscess Related Data Home Medications ?Medication ?Instructions ?Recorded ?Confirmed cetirizine 10 mg tablet (Zyrtec) 10 mg PO DAILY PRN 05/15/22 04/12/25 Previous Rx's ?Medication ?Instructions ?Recorded amlodipine 5 mg tablet 5 mg PO DAILY #90 tabs 04/04/25 metoprolol succinate 25 mg 25 mg PO DAILY #90 tabs 04/12/25 tablet,extended release 24 hr irbesartan 150 mg tablet 150 mg PO DAILY #90 tabs 04/15/25 hydrochlorothiazide 25 mg tablet 25 mg PO DAILY 90 days #90 tabs 04/26/25 cephalexin 500 mg capsule 500 mg PO QID 7 days #28 caps 06/05/25 doxycycline hyclate 100 mg capsule 100 mg PO BID #20 caps 06/13/25 Allergies Allergy/AdvReac Type Severity Reaction Status Date / Time No Known Allergies Allergy Verified 06/13/25 08:12 Review of Systems Review of Systems: as per hpi Yes all other systems are reviewed and are negative Constitutional: Constitutional: Reports as per HPI [facility] Past Medical History Medical History Ascending aorta dilatation Surgical History No pertinent past surgical history Social History Social History Housing: Apartment Patient Tobacco Use Status: Never used Tobacco e-Cigarette/Vaping Use: Never Used Second Hand Smoke Exposure: No Advance Directives: No Advance Directives Information Provided: No Do you have a plan to hurt others: No Plan service: No Current occupational status: employed Current occupation: [employer] Current occupational exposures/hazards: No Cognitive needs: No Hearing needs: No Vision needs: No Physical Exam ED Vital Signs: Vital Signs - 24 hr 06/13/25 08:10 Temperature 97.6 F Pulse Rate 71 Respiratory Rate 18 Blood Pressure 133/83 Pulse Oximetry 97 Oxygen Delivery Method Room Air BMI result Body Mass Index 33.7 Vital signs have been reviewed and appear to be correct. Blood pressure normal. Heart rate normal. Respiratory rate normal. Temperature normal. Oxygen saturation normal. Const General: cooperative, healthy appearing and no acute distress Orientation/consciousness: oriented to person, oriented to place, oriented to time and patient oriented x3 Limitations: no limitations HENMT Head: Yes normocephalic and Yes atraumatic Ears: external ears normal General nose exam: Normal external nose present Face and sinus: Yes face symmetric Mouth: oropharynx normal and moist mucous membranes Throat: Yes uvula midline Eyes Pupils: Equal, round and reactive pupils present Neck Neck: Yes normal visual inspection, Yes full ROM, Yes no lymphadenopathy, Yes no meningeal signs and Yes supple Neck images:  1. 1.5cm erythematous, fluctuant abscess Resp Effort & Inspection: normal respiratory effort and able to speak in complete sentences Auscultation: clear to auscultation bilaterally Cardio Rate: regular rate Rhythm: regular rhythm Heart sounds: S1 normal heart sound present and S2 normal heart sound present GI Palpation (GI): Soft to palpation and nontender Auscultation: normoactive bowel sounds General: Yes no CVA tenderness Back/Spine/Pelvis Back: no CVA tenderness Skin General skin exam: elasticity normal and turgor normal Neuro General: oriented to person, oriented to place, oriented to time, patient oriented x3, moves all extremities, no meningeal signs, no focal motor deficits and CN's II-XI intact bilaterally Cranial nerves: Yes Equal, round and reactive pupils present Cognition (Neuro): normal cognition Extrem General: Yes full ROM, Yes no pedal edema and Yes no calf tenderness Psych Mental Status: mental status grossly normal Affect: normal affect Thought process: Normal thought process present Medications Administered Discontinued Medications Generic Name Dose Route Start Last Admin Trade Name Freq PRN Reason Stop Dose Admin Lidocaine HCl 5 ml 06/13/25 09:02 06/13/25 09:09 Lidocaine Hcl 1 % Mpf 5 Ml Vial INFILTRATI 06/13/25 09:03 5 ml ONCE ONE Administration Procedures Abscess I/D Site: neck Side (if applicable): left Local Anesthetic: lidocaine 1% Amount of anesthesia used (mL): 3 Technique: incised with blade Amount of fluid expressed (mL): 5 Sent for culture/gram staining?: Yes Irrigation: No Packing used?: none Medical Decision Making Medical Decision Making [facility] Narrative: Patient is a 44-year-old male presenting to the emergency department with complaint of abscess to the back of his neck. On exam patient is awake, A+Ox3, VS WNL, afebrile, normal neurological exam without focal deficits, physical exam findings as above. Given reported symptoms and physical exam findings, initial differential includes but is not limited to abscess, sebaceous cyst. Abscess drained as per procedure note, wound culture obtained. Will start patient on course of doxycycline. Will also refer to general surgery. Wound care instructions discussed as well as return precautions. Patient verbalized understanding of and agreement with plan. Differential Diagnosis Differential Diagnoses: The differential diagnosis associated with the presentation includes as per [facility] Admission/Observation Consideration of admission/observation: Escalation of care including admission/observation considered Patient would have been admitted to the hospital and transferred to appropriate facility had their clinical presentation warranted hospital admission. External Record Review External record reviewed: Inpatient record, Office record and Outpatient record Prescription Management I considered prescription management with: Antibiotic Discharge Plan Discharge Clinical Impression: Abscess of skin of neck Patient Disposition: Home, Self-Care Instructions: Abscess (ED), Abscess Incision and Drainage (DC) Additional Instructions: You were evaluated in the ER for an abscess. Please keep the area surrounding the abscess clean and dry. You were given a prescription for antibiotics, please take the antibiotics as directed for the full course of the medication. You should perform a skin check of the area daily. You can use Tylenol or ibuprofen per package directions as needed for pain. If necessary, you can alternate these medications so that you take one medication every 3 hours. For instance, at noon take ibuprofen, then at 3:00 p.m. take Tylenol, then at 6:00 p.m. take ibuprofen. Please schedule an appointment with your primary care physician as soon as possible for follow-up. Return to the emergency department if you experience fevers greater than 100.4? F, increased in area of redness or swelling, increasing amount of discharge from the area, increased tenderness around the area, or any other concerning symptoms. Prescriptions: New doxycycline hyclate 100 mg capsule 100 mg PO BID Qty: 20 0RF No Action amlodipine 5 mg tablet 5 mg PO DAILY Qty: 90 1RF irbesartan 150 mg tablet 150 mg PO DAILY Qty: 90 1RF hydrochlorothiazide 25 mg tablet 25 mg PO DAILY 90 Days Qty: 90 1RF cetirizine [Zyrtec] 10 mg tablet 10 mg PO DAILY PRN metoprolol succinate 25 mg tablet extended release 24 hr 25 mg PO DAILY Qty: 90 1RF cephalexin 500 mg capsule 500 mg PO QID 7 Days Qty: 28 0RF Referrals: [facility] [place] [facility] Surgeons [Provider Group, General Surgery] Clinical Impression: Abscess of skin of neck Print Language: Faroese
[2025-06-13] MEDS: Lidocaine HCl 1 % MPF 5 ML VIAL INFILTRATI (09:09)
[2025-06-13 10:02] VITALS: BP 133/83; PULSE 71; RESP 18; TEMP 36.4; O2SAT 97
== END 2025-06-13 10:02 | disposition home or self-care (01) ==
PROVIDERS: Emergency Provider Emergency Medicine; PCP Nurse Practitioner Family
DX: L02.11 Cutaneous abscess of neck (principal)
CPT/HCPCS: 10060; 87070; 87205; 99284; J2003

== ENCOUNTER 2025-06-15 12:58 | Outpatient (AMB) | payer OTHER, SELFPAY ==
--- NOTE | 2025-06-15 13:04 | A.OFFVIS_ITS ---
Vital Signs 3 06/15/25 13:12 Height 5 ft 11 in Weight 247 lb BMI 34.4 BP 136/69 Blood Pressure Location Lt brachial Position Sitting Pulse 69 Intake Visit Reasons: Abscess on neck Intake Note: Patient is seen in office for ER follow up visit, following for abscess on the neck. Pt c/o: notice a lump on the neck on , had this same issue 4 yrs ago it was drain at that time, at the ER it was I&D and was given abx, since the lump has gone down, still has a small lump, irritating , some minimal discharge, still on abx Movie Operator Required: No Accompanied by: Self / Same As Patient Allergies No Known Allergies Allergy (Verified 06/15/25 13:12) Medication List - Last Reconciled 06/15/25 by Brent Chatterjee MD amlodipine 5 mg PO DAILY cephalexin 500 mg PO QID 7 days cetirizine (Zyrtec) 10 mg PO DAILY PRN doxycycline hyclate 100 mg PO BID hydrochlorothiazide 25 mg PO DAILY 90 days irbesartan 150 mg PO DAILY metoprolol succinate ER 25 mg PO DAILY HPI Comments Details: 44-year-old gentleman presents with a history of a multiple recurrent superficial skin abscess of the posterior left aspect of his neck. His latest problems started several days ago. He has been placed on antibiotic therapy with some drainage. He reports it is ?much better than it was? in his here for definitive care. He reports no fevers chills nausea or vomiting and denies any history of trauma or instrumentation to the region. [facility] Medical History Ascending aorta dilatation Surgical History No pertinent past surgical history Social History Housing: Apartment Patient Tobacco Use Status: Never used Tobacco e-Cigarette/Vaping Use: Never Used Second Hand Smoke Exposure: No service: No Current occupational status: employed Current occupation: [employer] Current occupational exposures/hazards: No Cognitive needs: No Hearing needs: No Vision needs: No Review of Systems Const All systems reviewed & are unremarkable except as noted in HPI and below Physical Exam Vital Signs: Last Vital Signs Pulse 69 06/15/25 13:12 BP 136/69 06/15/25 13:12 BMI result Body Mass Index 34.4 Const General: cooperative, healthy appearing, comfortable and no acute distress HEENT Head: Yes normal to inspection, Yes normocephalic and Yes atraumatic Neck Neck images: 2 1. Draining sebaceous cyst at the hairline approximately 1 cm in diameter Chest Chest palpation & inspection: normal inspection of the chest Resp Effort & Inspection: normal respiratory effort Cardio Rate: regular rate Rhythm: regular rhythm GI Inspection: Yes normal to inspection Neuro Cranial nerves: Yes CN's II-XII intact bilaterally Assessment & Plan Assessment & Plan (1) Abscess: Code(s): L02.91 - Cutaneous abscess, unspecified Category: Medical Plan: I told the patient that his presentation was consistent with a infected and already drained superficial sebaceous cyst in the posterior aspect of his neck. It has already drain and I discussed with him local wound care. I encouraged him to continue antibiotics until they are all completed and asked him to come back and see us in a month. We will reassess the area and I anticipate it will be essentially healed. At that point I probably will be appropriate to schedule him for definitive excision under local anesthetic. My assessment of his condition as well as the plan is for his continuing care were reviewed with him in detail and he indicated that he was happy to proceed with the plan as it was outlined to him. Coding Level of Care Code New Pt Level 3 (80829) Diagnoses Abscess L02.91 Time Spent (min) 30 Comment Patient visit, record review and coordination of care time
[2025-06-15 13:12] VITALS: BP 136/69; PULSE 69; BMI 34.4
== END 2025-06-15 13:30 | disposition home or self-care (01) ==
LOC: HO.HGS 12:59
PROVIDERS: PCP Nurse Practitioner Family; Visit Provider Surgery
DX: L02.91 Cutaneous abscess, unspecified (principal)
CPT/HCPCS: 99203